=== PATIENT | female | born 1950 | race Caucasian/White ===

== ENCOUNTER 2018-07-14 09:33 | Outpatient (REF) | payer OTHER, SELFPAY ==
[2018-07-14 20:43] LABS: ALT 33 U/L (12-78); AST 25 U/L (15-37); Albumin 3.4 g/dL (3.4-5.0); Alkaline Phosphatase 103 U/L (46-116); Anion Gap 9.9 mmol/L (3-11); BUN 24 mg/dL (7-18); Bilirubin, Total 0.5 mg/dL (0.2-1.0); CO2 22.1 mmol/L (21.0-32.0); CREATININE 1.06 mg/dL (0.55-1.02); Calcium 8.3 mg/dL (8.5-10.1); Chloride 107 mmol/L (98-107); Cholesterol 153 mg/dL (50-200); Estimated GFR 51.71 (mL/min/1.73m2); Glucose 99 mg/dL (70-100); HDL Cholesterol 46 mg/dL (40-60); LDL CHOLESTEROL 97 mg/dL (<100); Potassium 4.8 mmol/L (3.5-5.1); Sodium 139 mmol/L (136-145); Total Protein 6.5 g/dL (6.4-8.2); Triglyceride 98 mg/dL (30-150)
[2018-07-14 20:52] LABS: Hemoglobin A1C 5.8 % (4.5-6.2)
== END 2018-07-14 09:53 ==
LOC: NCHCN 09:33
PROVIDERS: PCP Nurse Practitioner Family; Visit Provider Family Medicine
DX: I10 Essential (primary) hypertension (principal); E78.5 Hyperlipidemia, unspecified; R73.9 Hyperglycemia, unspecified
CPT/HCPCS: 80053; 80061; 83721; 83036

== ENCOUNTER 2018-08-23 01:13 | Outpatient (CLI) | payer OTHER, SELFPAY ==
--- NOTE | 2018-08-23 10:45 | DI.MAMMO_ITS ---
SYMPTOM/DIAGNOSIS: SCREENING, Z12.39 MAMMOGRAMS: Mammograms were interpreted according to the usual protocol including computer analysis with CAD system, tomosynthesis and C view imaging. The breasts are of moderate density with fairly symmetrical distribution of fibroglandular tissue. No dominant mass or clumped microcalcification is identified in either breast. The current examination is compared with previous examinations including 01/2017 and there has been no gross interval change in appearance in comparison with the previous studies. CONCLUSION: No specific evidence of malignancy at this time. Routine screening examinations are suggested at yearly intervals in this age group according to the ACS/ACR guidelines. Category 1. Breast density, category B. MQSA ASSESSMENT OF FINDINGS: Negative. Category 1. Patient will receive a letter notifying them of these results. BI-RADS category B. There are scattered areas of fibroglandular density.
== END 2018-08-23 01:33 ==
PROVIDERS: Visit Provider Physician Assistant Medical
DX: Z12.31 Encounter for screening mammogram for malignant neoplasm of breast (principal)
CPT/HCPCS: 77063; 77067

== ENCOUNTER 2019-01-14 12:40 | Outpatient (REF) | payer OTHER, SELFPAY ==
[2019-01-14 19:36] LABS: ALT 28 U/L (12-78); AST 17 U/L (15-37); Albumin 3.5 g/dL (3.4-5.0); Alkaline Phosphatase 104 U/L (46-116); Anion Gap 8.7 mmol/L (3-11); BUN 26 mg/dL (7-18); Bilirubin, Total 0.6 mg/dL (0.2-1.0); CO2 27.3 mmol/L (21.0-32.0); CREATININE 1.07 mg/dL (0.55-1.02); Chloride 104 mmol/L (98-107); Cholesterol 154 mg/dL (50-200); Estimated GFR 51.15 (mL/min/1.73m2); Glucose 96 mg/dL (70-100); HDL Cholesterol 44 mg/dL (40-60); LDL CHOLESTEROL 90 mg/dL (<100); Potassium 4.7 mmol/L (3.5-5.1); Sodium 140 mmol/L (136-145); Total Protein 6.9 g/dL (6.4-8.2); Triglyceride 125 mg/dL (30-150)
[2019-01-15 07:58] LABS: Hemoglobin A1C 5.8 % (4.5-6.2)
== END 2019-01-14 13:00 ==
LOC: NCHCN 12:40
PROVIDERS: Visit Provider Nurse Practitioner Family
DX: R73.9 Hyperglycemia, unspecified (principal); I10 Essential (primary) hypertension; E78.5 Hyperlipidemia, unspecified
CPT/HCPCS: 80053; 80061; 83721; 83036

== ENCOUNTER 2019-07-15 09:46 | Outpatient (REF) | payer OTHER, SELFPAY ==
[2019-07-15 19:50] LABS: Glucose 95 mg/dL (70-100)
== END 2019-07-15 10:06 ==
LOC: NCHCN 09:46
PROVIDERS: PCP Nurse Practitioner Family; Visit Provider Nurse Practitioner Family
DX: R73.9 Hyperglycemia, unspecified (principal)
CPT/HCPCS: 82947

== ENCOUNTER 2019-09-07 01:07 | Outpatient (CLI) | payer OTHER, SELFPAY ==
--- NOTE | 2019-09-07 10:45 | DI.MAMMO_ITS ---
EXAM: MG MAMMO SCREENING CLINICAL HISTORY: SCREENING Z12.39 TECHNIQUE: Bilateral full field digital CC and MLO mammographic images were obtained with 3D tomosyn thesis and utilizing computer aided detection (CAD). COMPARISON: Available for comparison. FINDINGS: Masses/Architectural Distortion: None seen. Microcalcifications: No suspicious pleomorphic-type are seen. Skin Thickening/Nipple Retraction: None. IMPRESSION: 1. No significant interval change with no specific features of malignancy noted. 2. Unless there is more urgent need, screening mammography is recommended, as per [employer] guidelines. ACR BI-RAD Category- 1 Negative Breast Density - Category A - Almost entirely fatty A negative radiographic report should not delay biopsy if a dominant or clinically suspicious mass is present. Up to ten percent of cancers are not identified on mammography. A negative report may reinforce clinical impression. Adenosis and dense breasts may obscure an underlying neoplasm. False positive reports average 6 to 10%.
== END 2019-09-07 01:27 ==
PROVIDERS: PCP Nurse Practitioner Family; Visit Provider Nurse Practitioner Family
DX: Z12.31 Encounter for screening mammogram for malignant neoplasm of breast (principal)
CPT/HCPCS: 77063; 77067

== ENCOUNTER 2020-01-02 08:47 | Outpatient (REF) | payer OTHER, SELFPAY ==
[2020-01-02 20:13] LABS: ALT 26 U/L (14-59); AST 14 U/L (15-37); Anion Gap 12.5 mmol/L (3-11); BUN 24 mg/dL (7-18); CO2 22.5 mmol/L (21.0-32.0); CREATININE 0.97 mg/dL (0.55-1.02); Calcium 8.8 mg/dL (8.5-10.1); Calculated LDL 79 mg/dL (<100); Chloride 105 mmol/L (98-107); Cholesterol 142 mg/dL (<200); Estimated GFR 57.11 (mL/min/1.73m2); Glucose 106 mg/dL (74-106); HDL Cholesterol 44 mg/dL (40-60); Potassium 4.5 mmol/L (3.5-5.1); Sodium 140 mmol/L (136-145); Triglyceride 95 mg/dL (<150)
[2020-01-02 20:25] LABS: Creatine Kinase 51 U/L (26-192)
== END 2020-01-02 09:07 ==
LOC: NCHCN 08:47
PROVIDERS: PCP Nurse Practitioner Family; Visit Provider Nurse Practitioner Family
DX: I10 Essential (primary) hypertension (principal); J44.9 Chronic obstructive pulmonary disease, unspecified
CPT/HCPCS: 80048; 80061; 82550; 84450; 84460

== ENCOUNTER 2020-09-18 00:34 | Outpatient (CLI) | payer OTHER, SELFPAY ==
--- NOTE | 2020-09-18 | DI.DEXA_ITS ---
EXAM: XR DEXA BONE DENSITY W/WO KAREEM CLINICAL HISTORY: SCREENING FOR OSTEOPOROSIS IN POSTMENOPAUSAL WOMAN,Z78.0,Z13.820 TECHNIQUE: COMPARISON: No exams were available for comparison FINDINGS: Lateral Spine Image: Unremarkable. No compression deformities identified. Left hip: Total T-Score: 1.0 Total Z-Score: 2.5 T- and Z-scores: Within normal limits. Lumbar Spine: Total T-Score: 0.1 Total Z-Score: 2.2 T- and Z-scores: Within normal limits. IMPRESSION: No evidence of osteoporosis.
== END 2020-09-18 00:54 ==
PROVIDERS: PCP Nurse Practitioner Family; Visit Provider Nurse Practitioner Family
DX: Z78.0 Asymptomatic menopausal state (principal); Z13.820 Encounter for screening for osteoporosis
CPT/HCPCS: 77080

== ENCOUNTER 2020-12-24 16:50 | Outpatient (REF) | payer OTHER, SELFPAY ==
[2020-12-24 16:10] LABS: Anion Gap 10.9 mmol/L (3-11); BUN 24 mg/dL (7-18); CO2 21.1 mmol/L (21.0-32.0); Calculated LDL 76 mg/dL (<100); Chloride 106 mmol/L (98-107); Cholesterol 144 mg/dL (<200); Estimated GFR 54.97 (mL/min/1.73m2); Glucose 108 mg/dL (74-106); HDL Cholesterol 46 mg/dL (40-60); Potassium 4.4 mmol/L (3.5-5.1); Sodium 138 mmol/L (136-145); Triglyceride 111 mg/dL (<150)
[2020-12-24 18:20] LABS: ALT 30 U/L (14-59); AST 18 U/L (15-37); Creatine Kinase 64 U/L (26-192)
== END 2020-12-24 16:51 | disposition home or self-care (01) ==
LOC: NCHCN 16:50
PROVIDERS: PCP Nurse Practitioner Family; Visit Provider Nurse Practitioner Family
DX: I10 Essential (primary) hypertension (principal); E78.5 Hyperlipidemia, unspecified
CPT/HCPCS: 80048; 80061; 82550; 84450; 84460

== ENCOUNTER 2021-01-04 02:42 | Outpatient (CLI) | payer OTHER, SELFPAY ==
--- NOTE | 2021-01-04 | DI.MAMMO_ITS ---
EXAM: MAMMO SCREENING CLINICAL HISTORY: SCREENING, Z12.39 TECHNIQUE: Mammograms were interpreted according to the usual protocol including computer analysis w [employer] CAD system, tomosynthesis and C-view imaging. COMPARISON: 2011 through 2018 FINDINGS: The breasts are composed of mainly fatty density , Breast Density category A. No suspicious masses or suspicious microcalcifications are seen. No skin thickening or abnormal axillary lymph nodes are seen. There has been no significant change from prior exams. IMPRESSION: BI-RADS Category 1, Negative mammogram Yearly screening mammography is recommended. Breast Density - Category A, fatty density. A negative radiographic report should not delay biopsy if a dominant or clinically suspicious mass is present. Up to ten percent of cancers are not identified on mammography. A negative report may reinforce clinical impression. Adenosis and dense breasts may obscure an underlying neoplasm. False positive reports average 6 to 10%. Patient will receive a letter notifying them of these results.
== END 2021-01-04 02:43 ==
LOC: DI 02:42
PROVIDERS: PCP Nurse Practitioner Family; Visit Provider Nurse Practitioner Family
DX: Z12.31 Encounter for screening mammogram for malignant neoplasm of breast (principal)
CPT/HCPCS: 77063; 77067

== ENCOUNTER 2021-06-24 09:11 | Outpatient (REF) | payer OTHER, SELFPAY ==
[2021-06-24 15:14] LABS: Abs Immature Grans 0.02 10^3/uL (0.0-0.06); Absolute Basophil Count 0.06 10^3/uL (0.0-0.2); Absolute Eosinophil Count 0.17 10^3/uL (0.0-0.7); Absolute Lymphocyte Count 1.66 10^3/uL (1.2-3.4); Absolute Monocyte Count 0.59 10^3/uL (0.1-0.8); Basophils % 0.8; Eosinophils % 2.3; HCT 48.4 % (36.0-46.0); Immature Grans % 0.3; Lymphocytes % 22.7; MCH 29.9 pg (27.0-33.0); MCHC 33.1 % (32.0-36.0); MCV 90.3 fL (80-95); MPV 11.5 fL (8.0-11.0); Monocytes % 8.1; Neutrophils % 65.8; Nucleated RBC 0 %; Platelet Count 205 10^3/uL (130-400); RBC 5.36 10^6/uL (3.93-5.22); RDW 13.6 % (11.7-14.6); RDW-SD 45.2 fL
[2021-06-24 15:40] LABS: ALT 28 U/L (14-59); AST 17 U/L (15-37); Albumin 3.7 g/dL (3.4-5.0); Alkaline Phosphatase 94 U/L (46-116); BUN 21 mg/dL (7-18); Bilirubin, Direct 0.1 mg/dL (0.0-0.2); Bilirubin, Total 0.6 mg/dL (0.2-1.0); Estimated GFR 54.81 (mL/min/1.73m2); TSH (W/Ref FT4) 2.55 uIU/mL (0.36-3.74)
== END 2021-06-24 09:12 | disposition home or self-care (01) ==
LOC: NCHCN 09:11
PROVIDERS: PCP Nurse Practitioner Family; Visit Provider Nurse Practitioner Family
DX: L29.9 Pruritus, unspecified (principal)
CPT/HCPCS: 80076; 84520; 82565; 84443; 85025

== ENCOUNTER 2021-12-18 08:32 | Outpatient (REF) | payer OTHER, SELFPAY ==
[2021-12-18 13:15] LABS: ALT 26 U/L (14-59); AST 16 U/L (15-37); Anion Gap 11.5 mmol/L (3-11); BUN 23 mg/dL (7-18); CO2 21.5 mmol/L (21.0-32.0); CREATININE 0.9 mg/dL (0.55-1.02); Calcium 8.8 mg/dL (8.5-10.1); Chloride 108 mmol/L (98-107); Glucose 99 mg/dL (74-106); HDL Cholesterol 54 mg/dL (40-60); LDL CHOLESTEROL 91 mg/dL (<100); Potassium 4.2 mmol/L (3.5-5.1); Sodium 141 mmol/L (136-145)
[2021-12-18 13:25] LABS: Hemoglobin A1C 5.7 % (<5.7)
[2021-12-18 13:35] LABS: Creatine Kinase 56 U/L (26-192)
== END 2021-12-18 08:33 | disposition home or self-care (01) ==
LOC: NCHCN 08:32
PROVIDERS: PCP Nurse Practitioner Family; Visit Provider Nurse Practitioner Family
DX: I10 Essential (primary) hypertension (principal); E78.5 Hyperlipidemia, unspecified; R73.03 Prediabetes
CPT/HCPCS: 80048; 82550; 83721; 83036; 83718; 84450; 84460

== ENCOUNTER → 2022-01-30 12:54 | Outpatient (BNVA) | payer OTHER, SELFPAY | PROVIDERS: PCP Nurse Practitioner Family; Referring Provider Nurse Practitioner Family; Visit Provider Surgery | DX: Z12.11 Encounter for screening for malignant neoplasm of colon (principal); Z86.010 Personal history of colon polyps | CPT/HCPCS: 99242 ==

== ENCOUNTER 2022-02-07 01:59 | Outpatient (CLI) | payer MEDICARE, SELFPAY ==
[2022-02-07 14:42] LABS: Source Nasal/Nares
[2022-02-07 19:20] LABS: COVID-19 PCR Negative (Negative)
== END 2022-02-07 02:00 | disposition home or self-care (01) ==
LOC: LBO 02:00
PROVIDERS: Surgery; PCP Nurse Practitioner Family; Visit Provider Surgery
DX: Z20.822 Contact with and (suspected) exposure to COVID-19 (principal)
CPT/HCPCS: 87635; U0005

== ENCOUNTER 2022-02-10 08:20 | Day surgery (SDC) | payer MEDICARE, SELFPAY ==
--- NOTE | 2022-02-10 06:42 | W.COLOREPORT ---
Colonoscopy Report Date of procedure: 02/10/22 Pre-op diagnosis general: Colon Cancer Screening/ Hx of colon polyp Post-op diagnosis procedure note: other (polyps ) Procedure: Colonoscopy with polypectomy Surgeon: Fariba Marshall Anesthesia Type: General:No Airway Estimated blood loss (mL): 3 Pathology: other (cecal polyp, ascending colon polyps X4, transverse colon polyp X7, descending colon polyp x2) Complications: None Disposition: same day Indications: Pt seen at the request of PCP regarding colon cancer screening. Pt has had a colon cancer screening before.? Denies problems with constipation, diarrhea.? No pain or difficulty with bowel movements.? Denies rectal bleeding.? There is no family history of any colon cancer.? She has lost weight- but she is actively trying to lose wt.? Their appetite is good.? No heart, lung, or kidney problems. + GERD.? if she takes PPI than controls well. ? No prior colo-rectal surgery.? No prior TYRONE.? No problems with anesthesia in the past. Had Ce in the past- and did have an adenoma.? Prep: Miralax/Dulcolax Procedure Start Time: 10:18 Procedure End Time: 10:57 Retraction Time: 29 minutes Findings: 14 polyps mild descending and sigmoid diverticulosis Procedure Description: After informed consent was obtained the patient was taken to the procedure room and placed in a left decubitous position. Monitors were applied and a time out was done. The patients name, date of , procedure, allergies to medications and metal in their body was reviewed. The patient was then sedated. Once sedated and comfortable a rectal exam was done. External exam was normal. Internal exam revealed a normal sphincter tone and no palpable masses. The scope was then introduced and retro-flexed. No internal hemorrhoids, polyps or masses were identified on retro-flexion. The scope was then advanced to the cecum without difficulty. The ileocecal vlave and appendiceal orifice were identified. The prep was good. The scope was then slowly retracted over 29 minutes back into the rectum. Polyps were removed with cold forceps in the ascending colon and descending colon and with a hot snare in the ascending colon x3, transverse colon x7 and descending colon x1. There was no diverticulosis noted. The scope was removed and the patient was woken up and taken back to Same day surgery in stable condition. The patient tolerated the procedure well and there were no immediate complications. Follow up: The patient should follow up in 3-5 years unless they develop changes in bowel habits or other new gastrointestinal complaints.
--- NOTE | 2022-02-10 06:43 | W.PM.DSUDISC ---
Discharge Plan Disposition Patient Disposition: HOME Condition: Good Discharge Details Reason For Visit: Colonoscopy Attending Provider: Fariba Marshall Primary Care Provider: Triny St Home Meds and New Rx's Prescriptions: Continued metoprolol tartrate 50 mg tablet 25 mg PO HS 0RF losartan 50 mg tablet 100 mg PO QAM 0RF cholecalciferol (vitamin D3) 75 mcg (3,000 unit) tablet 150 mcg PO DAILY 0RF calcium carbonate [Calcium 600] 600 mg calcium (1,500 mg) tablet 600 mg PO DAILY 0RF famotidine 20 mg tablet 20 mg PO QHS 0RF aspirin [Aspir-81] 81 MG tablet,delayed release (DR/EC) 81 mg PO QAM 0RF simvastatin 40 MG tablet 40 mg PO HS 0RF omeprazole 20 MG capsule,delayed release(DR/EC) 20 mg PO QPM 0RF montelukast 10 MG tablet 10 mg PO HS 0RF fluticasone propion-salmeterol [Advair Diskus] 1 PUFF blister with device 1 ea Inhalation QAM 0RF albuterol sulfate [Proventil HFA] 1 PUFF HFA aerosol inhaler 2 puff Inhalation DIRECTED 0RF multivitamin 1 EACH capsule 1 ea PO QAM 0RF fluticasone propionate 16 GM spray,suspension 2 spry NS QAM 0RF loratadine 10 MG tablet 10 mg PO QAM 0RF diphenhydramine HCl [Benadryl] 25 MG capsule 25 mg PO PRN PRN0RF Discontinued polyethylene glycol 3350 17 gram/dose powder 17 g PO ONCE Qty: 238 0RF Rx Instructions: To be taken as directed by prescriber's office for colonoscopy prep. bisacodyl [Dulcolax (bisacodyl)] 5 mg tablet,delayed release (DR/EC) 5 mg PO ONCE Qty: 4 0RF Rx Instructions: Take according to provider's instructions for colonoscopy prep. Discharge Instructions Instructions: Colorectal Polyps (DC), Diverticulosis (DC) Additional Instructions: Findings: 12 polyps Diverticulosis Follow up: 3 years Please call if you develop: fevers >101.5 Nausea or Vomiting Abdominal pain that is not transient Rectal bleeding that is more then a tbsp A hard abdomen and inability to pass gas DAY SURGERY UNIT POST ENDOSCOPY INSTRUCTIONS Instructions for everyone who is given Anesthesia: For your safety, please do the following for the next 24 Hours: a. Do not drive or operate dangerous equipment b. Do not drink alcohol beverages or use any recreational drugs for the first 24 hours or while taking pain medications. The medications in your body may have a reaction that can be dangerous. c. Do not make any important decisions or sign any important papers 1. Generally there are no restrictions on your activity after a day or so has gone by, but you may feel a bit fatigued for a few days. 2. After you arrive home you may have a light meal and return to a normal diet as you can tolerate it without feeling sick to your stomach. 3. After surgery, you may feel pain or discomfort. This should be only transient, but if it persists please contact your doctor. 4. If there are any questions regarding the findings of your procedure, please feel free to contact your doctor. 6. If you are unable to contact your doctor with a problem, contact the hospital at [phone]. 7. Continue all your regular medications unless directed otherwise. I understand the above instructions and have no questions. Signature of Patient or Responsible Adult Escort Date/Time Name of Responsible Adult Escort Signature of Nurse Date/Time Activity:: Activity as Tolerated Diet:: high fiber diet Discharge Orders Discharge Orders: Discharge Order (Routine); Ordered 02/10/22 Ordered By: Fariba Marshall
[2022-02-10 08:30] VITALS: BP 162/67; PULSE 90; RESP 19; TEMP 36.2; O2SAT 95
[2022-02-10] MEDS: Lactated Ringers 1,000 ML 80 ML IV (09:00)
--- NOTE | 2022-02-10 09:42 | W.ANESPRE ---
General Info Date of Service Date Performed: 02/10/22 Height: 5 ft 3 in Weight: 91.6 kg Body Mass Index (BMI): 35.7 Surgical Procedure: Operation Date: 02/10/22 10:05 Proposed Procedure Side Surgeon p Colonoscopy Fariba Marshall MD Meds Allergies and Home Medications Allergies Allergy/AdvReac Type Severity Reaction Status Date / Time clarithromycin [From Biaxin] Allergy Intermediate Skin Rash Unverified 02/10/22 08:40 mushroom Allergy Intermediate Itching Unverified 02/10/22 08:40 Sulfa (Sulfonamide AdvReac Intermediate Agitation Unverified 02/10/22 08:40 Antibiotics) atorvastatin calcium AdvReac Mild Myalgias Unverified 02/10/22 08:40 [From Lipitor] Home Medication Medication Instructions Recorded albuterol sulfate 90 mcg/actuation 2 puff INHALATION DIRECTED 03/28/13 aerosol inhaler (Proventil HFA) aspirin 81 mg tablet,delayed 81 mg PO QAM 03/28/13 release (Aspir-) fluticasone 100 mcg-salmeterol 50 1 ea INHALATION QAM 03/28/13 mcg/dose blistr powdr for inhalation (Advair Diskus) fluticasone propionate 50 2 spry NS QAM 03/28/13 mcg/actuation nasal spray,suspension loratadine 10 mg tablet 10 mg PO QAM 03/28/13 montelukast 10 mg tablet 10 mg PO HS 03/28/13 multivitamin 1 ea PO QAM 03/28/13 omeprazole 20 mg capsule,delayed 20 mg PO QPM 03/28/13 release simvastatin 40 mg tablet 40 mg PO HS 03/28/13 diphenhydramine HCl 25 mg capsule 25 mg PO PRN PRN 11/09/13 (Benadryl) calcium carbonate 600 mg calcium 600 mg PO DAILY 08/29/20 (1,500 mg) tablet (Calcium) cholecalciferol (vitamin D3) 75 150 mcg PO DAILY tab 08/29/20 mcg (3,000 unit) tablet losartan 50 mg tablet 100 mg PO QAM tab 08/29/20 metoprolol tartrate 50 mg tablet 25 mg PO HS tab 08/29/20 famotidine 20 mg tablet 20 mg PO QHS 07/12/21 bisacodyl 5 mg tablet,delayed 5 mg PO ONCE #4 tab 01/30/22 release (Dulcolax (bisacodyl)) polyethylene glycol 3350 17 17 g PO ONCE #238 g 01/30/22 gram/dose oral powder Current Visit Medications: Current Medications Generic Name Dose Route Start Last Admin Trade Name Freq PRN Reason Stop Dose Admin Hyoscyamine Sulfate 0.125 mg 02/10/22 06:43 Hyoscyamine 0.125 Mg Sl/Oral/Chew SL DIRECTED PRN Ringer's Solution 1,000 mls @ 80 mls/hr 02/10/22 06:00 02/10/22 09:00 IV 03/09/22 23:59 80 mls/hr INFUSION ANDREA Administration IV Miscellaneous Supplies 1 each 02/10/22 06:00 Iv Access IV 03/09/22 23:59 DIRECTED ANDREA Ondansetron HCl 4 mg 02/10/22 06:43 Ondansetron 4 Mg/2 Ml Vial IVP Q4H PRN PRN Nausea / Vomiting Sodium Chloride 0 ml 02/10/22 06:00 Normal Saline Flush 10 Ml Syr IV 03/09/22 23:59 PRN PRN Sodium Chloride 0 ml 02/10/22 06:00 Normal Saline 10 Ml Vial IJ 03/09/22 23:59 DIRECTED PRN Sterile Water 0 ml 02/10/22 06:00 Water,Injection,Sterile 10 Ml Vial IJ 03/09/22 23:59 DIRECTED PRN PFSH Active Problems Active Problems: Problem Status Onset Code Screening for colon cancer Z12.11 Medical History Medical History Adenomatous colon polyp Asthma Chronic cough Chronic obstructive lung disease Diverticulitis Essential hypertension Family history of colon cancer in mother Family history of ischemic heart disease Gastroesophageal reflux disease History of tobacco use Hyperlipidemia Hyperplastic colon polyp (~2012) Morbid obesity Obesity Papule Paresthesia Pre-diabetes Pruritus Tubular adenoma Surgical History Surgical History Colonoscopy - MAC Tonsillectomy and adenoidectomy Tobacco Smoking/Tobacco Use Status: Former Tobacco Use Alcohol Alcohol Intake: current Alcohol intake frequency: holidays/special occasions only Substance Use Substance use: Never Substance use type: does not use Vital Signs and Lab Results Vital Signs Most Recent Vital Signs in EMR: Most Recent Vital Signs Temp Pulse Resp BP Pulse Ox 36.2 C L 90 19 162/67 H 95 02/10/22 08:30 02/10/22 08:30 02/10/22 08:30 02/10/22 08:30 02/10/22 08:30 Lab Results Blood Type / Crossmatch: No Data to Display Complete Blood Count: No Data to Display Complete Metabolic Panel: No Data to Display Liver Function Panel: No Data to Display Coagulation Panel: No Data to Display Cardiac Panel: No Data to Display Arterial Blood Gas: No Data to Display Venous Blood Gas: No Data to Display Pancreas Panel: No Data to Display Thyroid Panel: No Data to Display Infectious Disease: Coronavirus (COVID-19)(PCR) Negative (Negative) 02/07/22 08:50 02/07/22 Coronavirus 2019 Source Nasal/Nares 02/07/22 08:50 02/07/22 Blood Cultures: No Data to Display Toxicology Panel: No Data to Display Anesthesia Assessment and Plan Anesthesia History Personal History: No History of Anesthesia Complications Family History: No Family History of Anesthesia Complications Exercise Tolerance Exercise Tolerance: Metabolic Equivalents<4 Cardiac & Pulmonary Exam Cardiac Exam: Normal S1/S2 Heart Sounds Pulmonary Exam: Clear Bilateral Breath Sounds Implantable Cardiac Device Does patient have a Pacemaker or an ICD?: No Airway Exam Known Difficult Airway: No Mallampati Class: 3 Mouth Opening: Normal (> 3cm) Thyromental Distance: Greater than 3 cm Neck Range of Motion: Full ROM Neck Circumference: Normal Teeth Condition: Removable Dentures/Plates Upper and Removable Dentures/Plates Lower ASA Classification ASA Score: ASA 2 Emergency Case?: No NPO Status NPO Status: NPO Clears >2 hours, Solids >8 hours Anesthesia Plan Resuscitation Status: Full Code Anesthesia Technique: General Anesthesia Airway Planned: Natural Airway Monitors Used: Standard Monitors Preoperative Comments:: 71 yo female for colo. Sig PMHx: COPD/chronic cough/former smoker (albuterol, advair), HTN (metoprolol, losartan), GERD (famotidine/omeprazole),
[2022-02-10 09:46] VITALS: BMI 35.7
--- NOTE | 2022-02-10 10:29 | BOWEL_PTH ---
PATIENT: Carmela Dunn LOC: [facility] U#:[id number] AGE/SX: 71/F ROOM: RE02/10/[address]: Fariba Marshall MD : [id number] BED: DIS: 02/10/2022 SPEC #: [id number] RECD: 02/10/22 12:54 STATUS: LESLY REQ #: [id number] CHAITANYA: 02/10/22 10:[address]: Fariba Marshall DEPT: Surgical Specimen RECD BY: Andra Sanderson ENTERED: 02/10/22 12:56 SP TYPE: Bowel OTHR DR: Triny St Tissues: 1 - BIOPSY BOWEL 2 - BIOPSY BOWEL 3 - BIOPSY BOWEL 4 - BIOPSY BOWEL Procedures: GROSS AND MICRO LEVEL 4 Comments: [id number]
--- NOTE | 2022-02-10 11:07 | W.ANESPOSTOP ---
Postoperative Evaluation Date, Time and Location Date Performed: 02/10/22 Time Performed: 11:08 Patient Location: Day Surgery Unit Vital Signs Most Recent Imported Vital Signs: Most Recent Vital Signs Temp Pulse Resp BP Pulse Ox 36.2 C L 90 19 162/67 H 95 02/10/22 08:30 02/10/22 08:30 02/10/22 08:30 02/10/22 08:30 02/10/22 08:30 Most Recent Manually Entered Vital Signs: Adult Blood Pressure: 105/64 Heart Rate: 78 Respirations: 16 Oxygen Saturation (%): 97 Temperature (C): 36 C Pain Score (0-10 Scale): 0 Assessment Mental Status: Awake (Alert & Oriented to Patient Baseline) Airway and Respiratory Function: Patent airway with normal (patient baseline) respiratory exam Cardiovascular Function: Hemodynamically Stable Hydration Status: Adequately Hydrated Nausea & Vomiting: No Nausea or Vomiting Pain: Pt. Denies Any Pain Peripheral Nerve Block: Patient did not receive a nerve block
[2022-02-10 11:09] VITALS: BP 105/64; PULSE 78; RESP 16; TEMPC 36; O2SAT 97
[2022-02-10 11:34] VITALS: BP 127/65; PULSE 74; RESP 16; TEMP 35.9; O2SAT 97
== END 2022-02-10 12:05 | disposition home or self-care (01) ==
LOC: SUR 08:20
PROVIDERS: PCP Nurse Practitioner Family; Visit Provider Surgery
PROC: 0DJD8ZZ Inspection of Lower Intestinal Tract, Via Natural or Artificial Opening Endoscopic (ICD-10-PCS; CPT 45378; principal; 2022-02-10 10:00)
DX: Z12.11 Encounter for screening for malignant neoplasm of colon (principal); Z86.010 Personal history of colon polyps; K63.5 Polyp of colon
CPT/HCPCS: 45380; 45385; 88305; J2704

== ENCOUNTER 2022-12-08 16:02 | Outpatient (REF) | payer MEDICARE, SELFPAY ==
[2022-12-08 17:21] LABS: ALT 30 U/L (14-59); AST 21 U/L (15-37); Albumin 3.5 g/dL (3.4-5.0); Alkaline Phosphatase 95 U/L (46-116); Anion Gap 11.9 mmol/L (3-11); BUN 21 mg/dL (7-18); Bilirubin, Total 0.5 mg/dL (0.2-1.0); CO2 22.1 mmol/L (21.0-32.0); CREATININE 1.1 mg/dL (0.55-1.02); Calcium 9.3 mg/dL (8.5-10.1); Chloride 107 mmol/L (98-107); Creatine Kinase 55 U/L (26-192); Estimated GFR 53.72 (mL/min/1.73m2); Glucose 113 mg/dL (74-106); Sodium 141 mmol/L (136-145); Total Protein 7.4 g/dL (6.4-8.2)
[2022-12-08 17:23] LABS: Hemoglobin A1C 5.7 % (<5.7)
[2022-12-08 17:43] LABS: HDL Cholesterol 53 mg/dL (40-60); LDL CHOLESTEROL 90 mg/dL (<100)
== END 2022-12-08 16:03 | disposition home or self-care (01) ==
LOC: NCHCN 16:02
PROVIDERS: PCP Nurse Practitioner Family; Visit Provider Nurse Practitioner Family
DX: E78.5 Hyperlipidemia, unspecified (principal); R73.03 Prediabetes; I10 Essential (primary) hypertension
CPT/HCPCS: 80053; 82550; 83721; 83036; 83718

== ENCOUNTER 2022-12-11 02:09 | Outpatient (CLI) | payer MEDICARE, SELFPAY ==
--- NOTE | 2022-12-11 | DI.MAMMO_ITS ---
Exam(s) MAMMO SCREENING EXAM: MAMMO SCREENING CLINICAL HISTORY: SCREENING MAMMO Z12.39 TECHNIQUE: Mammograms were interpreted according to the usual protocol including computer analysis w [employer] CAD system, tomosynthesis and C-view imaging. COMPARISON: 2013 through 2020 FINDINGS: The breasts are composed of mainly fatty density , Breast Density category A. No suspicious masses or suspicious microcalcifications are seen. No skin thickening or abnormal axillary lymph nodes are seen. There has been no significant change from prior exams. IMPRESSION: BI-RADS Category 1, Negative mammogram Yearly screening mammography is recommended. Breast Density - Category A, fatty density. A negative radiographic report should not delay biopsy if a dominant or clinically suspicious mass is present. Up to ten percent of cancers are not identified on mammography. A negative report may reinforce clinical impression. Adenosis and dense breasts may obscure an underlying neoplasm. False positive reports average 6 to 10%. Patient will receive a letter notifying them of these results.
== END 2022-12-11 02:29 ==
PROVIDERS: PCP Nurse Practitioner Family; Visit Provider Nurse Practitioner Family
DX: Z12.31 Encounter for screening mammogram for malignant neoplasm of breast (principal)
CPT/HCPCS: 77063; 77067

== ENCOUNTER 2023-01-27 01:39 | Outpatient (CLI) | payer MEDICARE, SELFPAY ==
--- NOTE | 2023-01-27 10:30 | DI.US_ITS ---
APPROVED REPORT EXAM: Comprehensive 2D, Doppler, and color-flow Echocardiogram Patient Location: Out-Patient Counseling Psychologist: Kelley Barrett RDCS (AE) Indications: Peripheral edema, SOB, HTN Other Information Study Quality: Adequate Conclusion The left ventricular wall thickness and chamber size. Estimated ejection fraction is 55%. Wall eugene on is normal Normal right ventricular size and systolic function Both atria are normal in size The aortic valve is mildly calcified and trileaflet without stenosis or regurgitation Normal mitral valve with mild regurgitation Normal tricuspid valve with mild regurgitation. Estimated right ventricular systolic pressure is 32 mmHg Wall motion Left Ventricle The left ventricle is normal size. The left ventricular systolic function is normal. The left ventric ular ejection fraction is within the normal range. There is normal left ventricular wall thickness. T here is normal LV segmental wall motion. There is no ventricular septal defect visualized. LVEF is 55 %. Right Ventricle The right ventricle is normal size. The right ventricular systolic function is normal. The RVSP is 31 .7 mmHg. Atria The left atrium size is normal. The right atrium size is normal. The interatrial septum is intact wit h no evidence for an atrial septal defect. Aortic Valve Aortic valve is mildly calcified. Aortic valve is trileaflet. There is no aortic valvular stenosis. N o aortic regurgitation is present. Mitral Valve The mitral valve is normal in structure. No evidence of mitral valve stenosis. Mild mitral regurgita tion. Tricuspid Valve The tricuspid valve is normal in structure. There is no tricuspid valve stenosis. Mild tricuspid regu rgitation. Pulmonic Valve The pulmonary valve is normal in structure. There is no pulmonic valvular stenosis. Trace to mild pul steven regurgitation. Great Vessels The aortic root is normal in size. The ascending aorta is normal in size. Aortic arch is not well vis ualized. IVC is normal in size and collapses >50% with inspiration. Pericardium There is no pericardial effusion. 2D Dimensions IVSD d PLAX 1.00 cm F: 0.6-1.0 LV Vol A2C d MOD 102.1 mL LVPW d PLAX 0.94 cm F: 0.6 - 1.0 LV Vol A4C d MOD 107.2 mL LVID d PLAX 4.26 cm F: 3.8 - 5.2 LA vol/ BSA A2C s A-L 20.0 mL/m2 LVDs 3.00 cm F: 2.2 - 3.5 LA vol/ BSA A4C s A-L 24.2 mL/m2 Ao Root d 2.46 cm F: 2.7 - 3.3 LA Vol/ BSA Biplane s A-L 23.5 mL/m2 RA Area A4C 11.85 cm2 LA Area A4C s MOD 16.24 cm2 RA Vol/ BSA A4C s A-L 15.1 mL/m2 LA Area A2C s MOD 13.85 cm2 Ao Asc Diam d 3.10 cm F: 2.3 - 3.1 LV EF A4C MOD 55.5 % LV EF Teichholz 55.7 % LV EF A2C MOD 56.0 % LVEF (Santana's) 55.63 % F: 54 - 74 LV EF Biplane MOD 55.6 % LV Volume 80.58 mL F: 46 - 106 SV 58.51 mL LV Volume Index 42.86 mL/m2 F: 29 - 61 SV Index 31.15 mL/m2 LV Vol Biplane MOD 105.2 mL FS 28.75 % M-Mode TAPSE 2.48 cm (M/F) >1.7 LV Diastology MV E' medial 0.068 (>0.07 m/s) E/A Ratio 1.0 LV E/e MED 12.95 (<14) MV E Vmax 0.89 (0.4-1.3 m/s) MV E' lateral 0.093 (>0.1 m/s) MV A Vmax 0.85 (0.4-1.3 m/s) LV E/e LAT 9.55 (<14) MV E/A Ratio 1.04 MV E/E' medial 12.98 MV E/E' lateral 9.57 Aortic Valve LVOT Area 2.62 cm2 AoV Area Vmax 1.82 cm2 LVOT Vmax 0.89 m/s AoV Area/ BSA (Vmax) 0.97 cm2/m2 LVOT Mean Maximo. 0.57 m/s ELISEO Mean Maximo. 1.66 cm2 LVOT Peak Grad 3.2 mmHg ELISEO Mean Maximo. Index 0.89 cm2/m2 LVOT Mean Grad 1.5 mmHg LVOT VTI 0.199 m LVOT Diam s 1.80 cm AoV Vmax 1.28 m/s Velocity Ratio 0.70 AoV Mean Maximo. 0.90 m/s AoV Peak Grad 6.6 mmHg LVOT SV 52.19 mL AoV Mean Grad 3.6 mmHg AoV VTI 0.283 m AoV Area VTI 1.84 cm2 AoV Area/ BSA (VTI) 0.98 cm/m2 Mitral Valve MV DT 195 (160-240 msec) MV PHT 56 msec MV Area PHT 3.90 cm2 MV VTI 0.240 m MV Area VTI 2.17 (4.0-6.0 cm2) Pulmonary Valve PV Vmax 1.03 (0.5-1.5 m/s) RVOT Peak Gr. 1.45 mmHg PV Peak Grad 4.2 mmHg RVOT Mean Gr. 0.75 mmHg PV Mean Grad 2.2 mmHg RVOT VTI 0.139 m PV VTI 0.232 m RVOT Vmax 0.60 m/s Tricuspid Valve TR Peak Grad 28.6 mmHg TR Vmax 2.68 m/s RA Pressure 3.00 mmHg RVSP (TR) 31.7 mmHg
== END 2023-01-27 01:59 ==
LOC: DI 01:40
PROVIDERS: PCP Nurse Practitioner Family; Visit Provider Nurse Practitioner Family
DX: R60.9 Edema, unspecified (principal)
CPT/HCPCS: 93306

== ENCOUNTER 2023-06-15 13:47 | Outpatient (REF) | payer MEDICARE, SELFPAY ==
[2023-06-15 15:16] LABS: HCT 46.2 % (36.0-46.0); HGB 15.6 g/dL (11.2-15.7); MCH 29.9 pg (27.0-33.0); MCHC 33.8 % (32.0-36.0); MCV 89 fL (80-95); MPV 10.8 fL (8.0-11.0); Platelet Count 223 10^3/uL (130-400); RBC 5.22 10^6/uL (3.93-5.22); RDW 13.4 % (11.7-14.6); RDW-SD 43.4 fL; WBC 7.53 10^3/uL (4.4-10.8)
[2023-06-15 15:38] LABS: ALT 24 U/L (14-59); AST 23 U/L (15-37); Albumin 3.5 g/dL (3.4-5.0); Alkaline Phosphatase 87 U/L (46-116); Anion Gap 12.3 mmol/L (3-11); BUN 23 mg/dL (7-18); Bilirubin, Total 0.5 mg/dL (0.2-1.0); CO2 20.7 mmol/L (21.0-32.0); CREATININE 1.1 mg/dL (0.55-1.02); Calcium 9.5 mg/dL (8.5-10.1); Chloride 106 mmol/L (98-107); Estimated GFR 53.39 (mL/min/1.73m2); Glucose 110 mg/dL (74-106); Potassium 4.2 mmol/L (3.5-5.1); Sodium 139 mmol/L (136-145); TSH 1.62 uIU/mL (0.36-3.74); Total Protein 7.4 g/dL (6.4-8.2)
== END 2023-06-15 13:48 | disposition home or self-care (01) ==
LOC: NCHCN 13:47
PROVIDERS: PCP Nurse Practitioner Family; Visit Provider Nurse Practitioner Family
DX: I10 Essential (primary) hypertension (principal); R73.03 Prediabetes; K21.9 Gastro-esophageal reflux disease without esophagitis; R60.0 Localized edema; J44.9 Chronic obstructive pulmonary disease, unspecified
CPT/HCPCS: 80053; 85027; 84443

== ENCOUNTER → 2023-08-03 01:35 | Outpatient (CLI) | payer MEDICARE, SELFPAY ==
--- NOTE | 2023-08-03 13:42 | DI.RAD_ITS ---
Exam(s) XR CHEST 2V PA LATERAL EXAM: XR CHEST 2V PA LATERAL CLINICAL HISTORY: COUGH, R05.8, COPD, J44.9. TECHNIQUE: 2D digital imaging was performed. COMPARISON: CR CHEST 2 VIEWS PA,LAT from 11/09/2013 FINDINGS: 2 views: Heart size is normal. The mediastinum is not widened. Left lung is clear but there is significant infiltrate in the right parahilar region now evident. Th is measures approximately 4 x 2 cm. No pleural effusions. IMPRESSION: Significant right parahilar infiltrate. Follow-up to resolution recommended to rule out neoplasm. DATA REPOSITORY: RADIATION DOSE DELIVERED:
== END ==
PROVIDERS: PCP Nurse Practitioner Family; Visit Provider Nurse Practitioner Family
DX: R05.8 Other specified cough (principal); J44.9 Chronic obstructive pulmonary disease, unspecified; R91.8 Other nonspecific abnormal finding of lung field
CPT/HCPCS: 71046

== ENCOUNTER → 2023-08-07 02:26 | Outpatient (CLI) | payer MEDICARE, SELFPAY ==
--- NOTE | 2023-08-07 | DI.CT_ITS ---
Exam(s) CT CHEST W EXAM: CT CHEST W CLINICAL HISTORY: PULMONARY INFILTRATE, R91.8, COUGH, R05.8 TECHNIQUE: Imaging Protocol: Axial computed tomography images with coronal and sagittal reformatted images were created and reviewed CONTRAST MATERIAL: Intravenous: Omnipaque 350Contrast volume:100 mL. COMPARISON: CR XR CHEST 2V PA LATERAL from 08/03/2023 FINDINGS: Tracheobronchial tree: Patent where visualized. Pulmonary parenchyma: Emphysematous changes are present in the lungs. There is a spiculated mass in the right upper lobe measuring 2.9 x 3.2 cm. There is obstruction of a bronchus.. There are noncalc ified pulmonary nodules present in the lungs. The largest is in the posterior aspect of the left low er lobe measures 8 mm. Pleural thickening and nodularity is seen along the lateral aspect of the lef t upper lobe. Mediastinum and Kassie: There are enlarged mediastinal and right hilar lymph nodes. The largest nodule is seen anterior to the naz and measures 1.5 x 1.3 cm. The largest lymph node in the right hilum measures 1.8 x 1.2 cm. The esophagus is unremarkable. Thyroid gland: Unremarkable. Pleura: No effusion or pneumothorax. Heart: The heart is not dilated. Coronary artery calcification and/or stents are present. No pericar dial effusion. Aorta: Thoracic aorta non-dilated. Atherosclerosis. Pulmonary arteries: Due to the timing of the bolus, evaluation for pulmonary emboli is suboptimal. N o large central pulmonary embolus is seen. Upper abdomen: There is decreased attenuation of the liver. There is a 1.9 cm cyst in the left lobe of the liver. There is fatty infiltration of the pancreas. Lymph nodes: Within normal limits. Bones: Within normal limits for the patient's age. Soft tissues: Unremarkable. IMPRESSION: 1. 2.9 x 3.2 cm right upper lobe spiculated mass suspicious for neoplasm. 2. Multiple noncalcified pulmonary nodules which may represent an infectious or inflammatory process but metastatic disease should also be considered. 3. Enlarged mediastinal and right hilar adenopathy. RADIATION DOSE DELIVERED: 685.98mGy.cm Total DLP DATA REPOSITORY: All CT scans at this facility are submitted to the National Radiology Data Registry (NRDR) Dose Index Registry (DIR) with the [employer] (ACR). RADIATION OPTIMIZATION: All CT scans at this facility use at least one of these dose optimization te chniques: automated exposure control; mA and/or kV adjustment per patient size (includes targeted exa ms where dose is matched to clinical indication); or iterative reconstruction.
[2023-08-07 11:51] LABS: CREATININE 1.1 mg/dL (0.55-1.02); Estimated GFR 53.39 (mL/min/1.73m2)
[2023-08-07] MEDS: Omnipaque 350 MG/ML 500 ML BTL-Imaging package 100 ML IJ (12:39)
[2023-08-07] MEDS: Normal Saline Flush 10 ML SYR IVP (12:39)
== END ==
PROVIDERS: PCP Nurse Practitioner Family; Visit Provider Nurse Practitioner Family
DX: R91.8 Other nonspecific abnormal finding of lung field (principal); R59.0 Localized enlarged lymph nodes
CPT/HCPCS: 71260; 82565

== ENCOUNTER 2023-09-01 03:05 | Outpatient (CLI) | payer MEDICARE, SELFPAY ==
[2023-09-01] MEDS: Inhaler, Assist Device 1 EACH MC (15:51)
[2023-09-01] MEDS: Levalbuterol HFA 15 GM INH 4 PUFF IH (15:51)
--- NOTE | 2023-09-04 12:42 | W.PFT ---
Date of service: 09/01/23 Time of Service: 14:53 Pulmonary Function Test Result Indications: RUL mass Interpretation Spirometry: There is mild airflow limitation. No significant bronchodilator response. Lung Volumes: Declined by patient Diffusion Capacity: Severely reduced diffusion Airway Pressure: Declined by patient Impression Mild airflow obstruction with severe diffusion deficit. 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 Clinical Correlation therefore is recommended.
== END 2023-09-01 03:06 | disposition home or self-care (01) ==
LOC: RT 03:05
PROVIDERS: PCP Nurse Practitioner Family; Visit Provider Thoracic Surgery (Cardiothoracic Vascular Surgery)
DX: R91.8 Other nonspecific abnormal finding of lung field (principal); R59.0 Localized enlarged lymph nodes
CPT/HCPCS: 94060; 94726; 94729

== ENCOUNTER → 2023-09-16 00:53 | Outpatient (CLI) | payer MEDICARE, SELFPAY ==
--- NOTE | 2023-09-16 | DI.CT_ITS ---
Exam(s) CT HEAD WO/W EXAM: CT HEAD WO/W CLINICAL HISTORY: RUL LUNG CA,C34.11,MEDIASTINAL ADNENOPATHY,EVAL FOR METS. TECHNIQUE: Imaging Protocol: Axial computed tomography images with coronal and sagittal reformatted images were created and reviewed. CONTRAST MATERIAL: Intravenous: Omnipaque 350 contrast volume:100 mL COMPARISON: No exams were available for comparison FINDINGS: Ventricles and Extra axial spaces: Normal in size and morphology for the patient's age. Hemorrhage: None. Cerebral parenchyma: There are areas of decreased attenuation in the white matter consistent with sma ll vessel ischemic disease. Enhancement: No suspicious enhancement. Venetie Ira of Pham: Unremarkable. Midline shift: None. Brainstem/Cerebellum: Normal. Calvarium: Normal. Visualized Paranasal sinuses/Mastoids: Clear. IMPRESSION: 1. Age-related cerebral atrophy and small vessel ischemic disease. 2. No evidence of an intracranial mass or enhancing lesion. RADIATION DOSE DELIVERED: Total DLP Total DLP DATA REPOSITORY: All CT scans at this facility are submitted to the National Radiology Data Registry (NRDR) Dose Index Registry (DIR) with the [employer] (ACR). RADIATION OPTIMIZATION: All CT scans at this facility use at least one of these dose optimization te chniques: automated exposure control; mA and/or kV adjustment per patient size (includes targeted exa ms where dose is matched to clinical indication); or iterative reconstruction.
[2023-09-16 12:46] LABS: Abs Immature Grans 0.03 10^3/uL (0.0-0.06); Absolute Basophil Count 0.06 10^3/uL (0.0-0.2); Absolute Eosinophil Count 0.13 10^3/uL (0.0-0.7); Absolute Lymphocyte Count 2.04 10^3/uL (1.2-3.4); Absolute Monocyte Count 0.64 10^3/uL (0.1-0.8); Basophils % 0.7; Eosinophils % 1.5; HCT 46.3 % (36.0-46.0); HGB 15.5 g/dL (11.2-15.7); Immature Grans % 0.3; Lymphocytes % 23.7; MCH 30.4 pg (27.0-33.0); MCHC 33.5 % (32.0-36.0); MCV 91 fL (80-95); MPV 9.5 fL (8.0-11.0); Monocytes % 7.4; Neutrophils % 66.4; Platelet Count 237 10^3/uL (130-400); RDW 13.3 % (11.7-14.6)
[2023-09-16 13:06] LABS: ALT 29 U/L (14-59); AST 24 U/L (15-37); Albumin 3.5 g/dL (3.4-5.0); Alkaline Phosphatase 92 U/L (46-116); Anion Gap 9.3 mmol/L (3-11); BUN 20 mg/dL (7-18); Bilirubin, Total 0.4 mg/dL (0.2-1.0); CO2 24.7 mmol/L (21.0-32.0); Calcium 9.8 mg/dL (8.5-10.1); Chloride 106 mmol/L (98-107); Estimated GFR 59.86 (mL/min/1.73m2); Glucose 122 mg/dL (74-106); Potassium 4.9 mmol/L (3.5-5.1); Sodium 140 mmol/L (136-145); Total Protein 7.7 g/dL (6.4-8.2)
[2023-09-16] MEDS: Normal Saline Flush 10 ML SYR IVP (13:19)
[2023-09-16] MEDS: Normal Saline - Diluent 50 ML VIAL IJ (13:22)
[2023-09-16] MEDS: Omnipaque 350 MG/ML 500 ML BTL-Imaging package IJ (13:23)
== END ==
PROVIDERS: PCP Nurse Practitioner Family; Visit Provider Thoracic Surgery (Cardiothoracic Vascular Surgery)
DX: C34.11 Malignant neoplasm of upper lobe, right bronchus or lung (principal); G31.1 Senile degeneration of brain, not elsewhere classified
CPT/HCPCS: 80053; 70470; 85025

== ENCOUNTER 2023-10-21 04:43 | Outpatient (CLI) | payer MEDICARE, SELFPAY ==
[2023-10-21 10:02] LABS: Abs Immature Grans 0.02 10^3/uL (0.0-0.06); Absolute Basophil Count 0.07 10^3/uL (0.0-0.2); Absolute Eosinophil Count 0.14 10^3/uL (0.0-0.7); Absolute Lymphocyte Count 1.58 10^3/uL (1.2-3.4); Absolute Monocyte Count 0.64 10^3/uL (0.1-0.8); Absolute Neutrophil Count 5.03 10^3/uL (1.2-6.7); Basophils % 0.9; Eosinophils % 1.9; HCT 45.1 % (36.0-46.0); HGB 15.2 g/dL (11.2-15.7); Immature Grans % 0.3; Lymphocytes % 21.1; MCH 30.7 pg (27.0-33.0); MCHC 33.7 % (32.0-36.0); MCV 91 fL (80-95); Monocytes % 8.6; Neutrophils % 67.2; Platelet Count 232 10^3/uL (130-400); RBC 4.95 10^6/uL (3.93-5.22); RDW 13.2 % (11.7-14.6); RDW-SD 44.6 fL; WBC 7.48 10^3/uL (4.4-10.8)
[2023-10-21 10:16] LABS: ALT 22 U/L (14-59); AST 17 U/L (15-37); Albumin 3.3 g/dL (3.4-5.0); Alkaline Phosphatase 94 U/L (46-116); Anion Gap 8.1 mmol/L (3-11); BUN 23 mg/dL (7-18); Bilirubin, Total 0.6 mg/dL (0.2-1.0); CO2 25.9 mmol/L (21.0-32.0); CREATININE 1.2 mg/dL (0.55-1.02); Calcium 9.3 mg/dL (8.5-10.1); Chloride 105 mmol/L (98-107); Estimated GFR 48.09 (mL/min/1.73m2); Glucose 103 mg/dL (74-106); Potassium 4.1 mmol/L (3.5-5.1); Sodium 139 mmol/L (136-145); Total Protein 7.3 g/dL (6.4-8.2)
== END 2023-10-21 04:44 | disposition home or self-care (01) ==
LOC: LBO 04:43
PROVIDERS: PCP Nurse Practitioner Family; Visit Provider Internal Medicine Medical Oncology
DX: C34.11 Malignant neoplasm of upper lobe, right bronchus or lung (principal)
CPT/HCPCS: 36415; 80053; 83735; 85025

== ENCOUNTER 2023-11-10 02:38 | Outpatient (CLI) | payer MEDICARE, SELFPAY ==
[2023-11-10 07:28] LABS: Abs Immature Grans 0.07 10^3/uL (0.0-0.06); Absolute Basophil Count 0.07 10^3/uL (0.0-0.2); Absolute Eosinophil Count 0.15 10^3/uL (0.0-0.7); Absolute Lymphocyte Count 1.41 10^3/uL (1.2-3.4); Absolute Neutrophil Count 5.54 10^3/uL (1.2-6.7); Basophils % 0.9; HCT 43.8 % (36.0-46.0); HGB 14.7 g/dL (11.2-15.7); Immature Grans % 0.9; Lymphocytes % 18.5; MCH 30.2 pg (27.0-33.0); MCHC 33.6 % (32.0-36.0); MCV 90 fL (80-95); MPV 9.7 fL (8.0-11.0); Monocytes % 5.2; Neutrophils % 72.5; Platelet Count 228 10^3/uL (130-400); RBC 4.87 10^6/uL (3.93-5.22); RDW 13.2 % (11.7-14.6); RDW-SD 43.6 fL; WBC 7.64 10^3/uL (4.4-10.8)
[2023-11-10 07:47] LABS: ALT 23 U/L (14-59); AST 11 U/L (15-37); Albumin 3.1 g/dL (3.4-5.0); Alkaline Phosphatase 82 U/L (46-116); Anion Gap 11.7 mmol/L (3-11); BUN 28 mg/dL (7-18); Bilirubin, Total 0.6 mg/dL (0.2-1.0); CO2 21.3 mmol/L (21.0-32.0); CREATININE 1.1 mg/dL (0.55-1.02); Chloride 104 mmol/L (98-107); Estimated GFR 53.39 (mL/min/1.73m2); Glucose 170 mg/dL (74-106); Magnesium 1.8 mg/dL (1.8-2.4); Potassium 4.5 mmol/L (3.5-5.1); Sodium 137 mmol/L (136-145); Total Protein 6.9 g/dL (6.4-8.2)
== END 2023-11-10 02:39 | disposition home or self-care (01) ==
PROVIDERS: PCP Nurse Practitioner Family; Visit Provider Internal Medicine Medical Oncology
DX: C34.11 Malignant neoplasm of upper lobe, right bronchus or lung (principal)
CPT/HCPCS: 36415; 80053; 83735; 85025

== ENCOUNTER 2023-11-16 05:11 | Outpatient (CLI) | payer MEDICARE, SELFPAY ==
[2023-11-16 08:16] LABS: Abs Immature Grans 0.05 10^3/uL (0.0-0.06); Absolute Basophil Count 0.04 10^3/uL (0.0-0.2); Absolute Eosinophil Count 0.08 10^3/uL (0.0-0.7); Absolute Lymphocyte Count 0.62 10^3/uL (1.2-3.4); Absolute Monocyte Count 0.26 10^3/uL (0.1-0.8); Absolute Neutrophil Count 4.05 10^3/uL (1.2-6.7); Basophils % 0.8; Eosinophils % 1.6; HCT 42.5 % (36.0-46.0); HGB 14.5 g/dL (11.2-15.7); Lymphocytes % 12.2; MCH 30.7 pg (27.0-33.0); MCHC 34.1 % (32.0-36.0); MCV 90 fL (80-95); MPV 9.7 fL (8.0-11.0); Monocytes % 5.1; Neutrophils % 79.3; Platelet Count 211 10^3/uL (130-400); RBC 4.73 10^6/uL (3.93-5.22); RDW 13.1 % (11.7-14.6); RDW-SD 42.6 fL
[2023-11-16 08:36] LABS: ALT 24 U/L (14-59); AST 13 U/L (15-37); Alkaline Phosphatase 70 U/L (46-116); Anion Gap 7.1 mmol/L (3-11); BUN 27 mg/dL (7-18); Bilirubin, Total 0.6 mg/dL (0.2-1.0); CO2 21.9 mmol/L (21.0-32.0); CREATININE 1.1 mg/dL (0.55-1.02); Chloride 107 mmol/L (98-107); Estimated GFR 53.39 (mL/min/1.73m2); Glucose 121 mg/dL (74-106); Magnesium 1.9 mg/dL (1.8-2.4); Potassium 4.2 mmol/L (3.5-5.1); Sodium 136 mmol/L (136-145); Total Protein 6.8 g/dL (6.4-8.2)
== END 2023-11-16 05:12 | disposition home or self-care (01) ==
LOC: LBO 05:11
PROVIDERS: PCP Nurse Practitioner Family; Visit Provider Internal Medicine Medical Oncology
DX: C34.11 Malignant neoplasm of upper lobe, right bronchus or lung (principal)
CPT/HCPCS: 36415; 80053; 83735; 85025

== ENCOUNTER 2023-11-23 05:16 | Outpatient (CLI) | payer MEDICARE, SELFPAY ==
[2023-11-23 11:11] LABS: Abs Immature Grans 0.05 10^3/uL (0.0-0.06); Absolute Basophil Count 0.05 10^3/uL (0.0-0.2); Absolute Eosinophil Count 0.06 10^3/uL (0.0-0.7); Absolute Lymphocyte Count 0.58 10^3/uL (1.2-3.4); Absolute Neutrophil Count 2.98 10^3/uL (1.2-6.7); Basophils % 1.2; Eosinophils % 1.5; HCT 41.2 % (36.0-46.0); HGB 13.9 g/dL (11.2-15.7); Immature Grans % 1.2; Lymphocytes % 14.1; MCH 30.6 pg (27.0-33.0); MCHC 33.7 % (32.0-36.0); MCV 91 fL (80-95); MPV 9.5 fL (8.0-11.0); Monocytes % 9.7; Neutrophils % 72.3; Platelet Count 187 10^3/uL (130-400); RBC 4.54 10^6/uL (3.93-5.22); RDW 13.4 % (11.7-14.6); RDW-SD 43.5 fL; WBC 4.12 10^3/uL (4.4-10.8)
[2023-11-23 11:28] LABS: ALT 24 U/L (14-59); AST 14 U/L (15-37); Albumin 3.1 g/dL (3.4-5.0); Alkaline Phosphatase 74 U/L (46-116); Anion Gap 9.3 mmol/L (3-11); BUN 19 mg/dL (7-18); Bilirubin, Total 0.4 mg/dL (0.2-1.0); CO2 22.7 mmol/L (21.0-32.0); Calcium 9.1 mg/dL (8.5-10.1); Chloride 106 mmol/L (98-107); Estimated GFR 59.86 (mL/min/1.73m2); Glucose 109 mg/dL (74-106); Magnesium 1.9 mg/dL (1.8-2.4); Potassium 4.4 mmol/L (3.5-5.1); Sodium 138 mmol/L (136-145); Total Protein 6.8 g/dL (6.4-8.2)
== END 2023-11-23 05:17 | disposition home or self-care (01) ==
LOC: LBO 05:16
PROVIDERS: PCP Nurse Practitioner Family; Visit Provider Internal Medicine Medical Oncology
DX: C34.11 Malignant neoplasm of upper lobe, right bronchus or lung (principal)
CPT/HCPCS: 36415; 80053; 83735; 85025

== ENCOUNTER 2023-12-07 03:08 | Outpatient (RCR) | payer MEDICARE, SELFPAY ==
[2023-11-30] MEDS: Normal Saline Flush 10 ML SYR IVP (08:41)
[2023-11-30 09:16] LABS: Abs Immature Grans 0.03 10^3/uL (0.0-0.06); Absolute Basophil Count 0.03 10^3/uL (0.0-0.2); Absolute Eosinophil Count 0.06 10^3/uL (0.0-0.7); Absolute Lymphocyte Count 0.46 10^3/uL (1.2-3.4); Absolute Monocyte Count 0.25 10^3/uL (0.1-0.8); Absolute Neutrophil Count 2.66 10^3/uL (1.2-6.7); Basophils % 0.9; Eosinophils % 1.7; HCT 38.8 % (36.0-46.0); HGB 13.3 g/dL (11.2-15.7); Immature Grans % 0.9; Lymphocytes % 13.2; MCH 30.9 pg (27.0-33.0); MCHC 34.3 % (32.0-36.0); MCV 90 fL (80-95); Monocytes % 7.2; Neutrophils % 76.1; Platelet Count 121 10^3/uL (130-400); RDW 13.6 % (11.7-14.6); RDW-SD 43.1 fL; WBC 3.49 10^3/uL (4.4-10.8)
[2023-11-30 09:40] LABS: ALT 24 U/L (14-59); AST 14 U/L (15-37); Albumin 3.1 g/dL (3.4-5.0); Alkaline Phosphatase 71 U/L (46-116); Anion Gap 10.6 mmol/L (3-11); BUN 20 mg/dL (7-18); Bilirubin, Total 0.6 mg/dL (0.2-1.0); CO2 23.4 mmol/L (21.0-32.0); CREATININE 1.1 mg/dL (0.55-1.02); Calcium 9.2 mg/dL (8.5-10.1); Chloride 107 mmol/L (98-107); Estimated GFR 53.39 (mL/min/1.73m2); Glucose 135 mg/dL (74-106); Magnesium 1.8 mg/dL (1.8-2.4); Sodium 141 mmol/L (136-145); Total Protein 6.6 g/dL (6.4-8.2)
[2023-12-07] MEDS: Normal Saline Flush 10 ML SYR IVP (09:15)
[2023-12-07 09:33] LABS: Abs Immature Grans 0.01 10^3/uL (0.0-0.06); Absolute Basophil Count 0.03 10^3/uL (0.0-0.2); Absolute Eosinophil Count 0.05 10^3/uL (0.0-0.7); Absolute Lymphocyte Count 0.34 10^3/uL (1.2-3.4); Absolute Monocyte Count 0.18 10^3/uL (0.1-0.8); Basophils % 1.4; Eosinophils % 2.4; HCT 36.3 % (36.0-46.0); HGB 12.4 g/dL (11.2-15.7); Immature Grans % 0.5; Lymphocytes % 16.1; MCH 30.8 pg (27.0-33.0); MCHC 34.2 % (32.0-36.0); MCV 90 fL (80-95); Monocytes % 8.5; Neutrophils % 71.1; RBC 4.02 10^6/uL (3.93-5.22); RDW-SD 43.8 fL; WBC 2.11 10^3/uL (4.4-10.8)
[2023-12-07 09:42] LABS: Diff Comment Diff Reviewed; Platelet Count 98 10^3/uL (130-400); Polychromasia Present
[2023-12-07 09:54] LABS: ALT 25 U/L (14-59); AST 15 U/L (15-37); Albumin 3.1 g/dL (3.4-5.0); Alkaline Phosphatase 65 U/L (46-116); Anion Gap 9.2 mmol/L (3-11); BUN 23 mg/dL (7-18); Bilirubin, Total 0.6 mg/dL (0.2-1.0); CO2 23.8 mmol/L (21.0-32.0); Calcium 9.1 mg/dL (8.5-10.1); Chloride 108 mmol/L (98-107); Estimated GFR 59.86 (mL/min/1.73m2); Glucose 152 mg/dL (74-106); Magnesium 1.7 mg/dL (1.8-2.4); Sodium 141 mmol/L (136-145); Total Protein 6.6 g/dL (6.4-8.2)
== END 2023-12-09 23:59 | disposition home or self-care (01) ==
LOC: INF 03:08
PROVIDERS: PCP Nurse Practitioner Family; Visit Provider Internal Medicine Medical Oncology
DX: C34.11 Malignant neoplasm of upper lobe, right bronchus or lung (principal); Z45.2 Encounter for adjustment and management of vascular access device
CPT/HCPCS: 36591; 80053; 83735; 85025

== ENCOUNTER → 2023-12-22 02:45 | Outpatient (CLI) | payer MEDICARE, SELFPAY ==
--- NOTE | 2023-12-22 | DI.CT_ITS ---
Exam(s) CT CHEST W EXAM: CT CHEST W CLINICAL HISTORY: RUL LUNG CA,C34.11.S/P CHEMO,RT,RESTAGING EXAM TECHNIQUE: Imaging Protocol: Axial computed tomography images with coronal and sagittal reformatted images were created and reviewed CONTRAST MATERIAL: Intravenous: Omnipaque 350Contrast volume:70 mL. COMPARISON: CT CT CHEST W from 08/07/2023 FINDINGS: Tracheobronchial tree: Patent where visualized. Pulmonary parenchyma: Moderate centrilobular emphysematous changes are present. There is a periphera l 3 mm nodule in the left upper lobe. (Series 3, image 263). There is a stable 8 mm nodule in the p osterior aspect of the left lower lobe (series 3, image 389). Using similar measuring techniques as before, the right upper lobe mass measures 2.6 x 2.0 cm. (Series 3, image 245). This compares to 3. 2 x 2.9 cm. No new pulmonary nodules are seen. No focal consolidating infiltrates are present. Mediastinum and Kassie: No dominant adenopathy or fluid collection. The esophagus is unremarkable. The re has been decrease in size of the right hilar lymph node. It measures 1.0 cm. (Series 3, image 34 3). This compares to 1.8 cm on the prior examination. Thyroid gland: There is a 3 mm nodule in the left lobe of the thyroid gland. No follow-up is recomme nded. Pleura: No effusion or pneumothorax. Heart: The heart is not dilated. Coronary artery calcification and/or stents are present. No pericar dial effusion. Aorta: Thoracic aorta non-dilated. Atherosclerosis is present. Pulmonary arteries: Due to the timing of the bolus, pulmonary artery opacification is suboptimal for evaluation of pulmonary emboli. Upper abdomen: Unremarkable. Lymph nodes: No axillary adenopathy. Bones: Within normal limits for the patient's age. Tubes, Catheters, and Lines: There is a left-sided Trwbhp-P-Gogn catheter in place. Soft tissues: Unremarkable. IMPRESSION: 1. Interval decrease in size of the right upper lobe mass in the right hilar lymph node. No evidence of progression of disease. 2. Stable left lower lobe pulmonary nodule. 3. Moderate centrilobular emphysema. RADIATION DOSE DELIVERED: 723.82mGy.cm Total DLP DATA REPOSITORY: All CT scans at this facility are submitted to the National Radiology Data Registry (NRDR) Dose Index Registry (DIR) with the [employer] (ACR). RADIATION OPTIMIZATION: All CT scans at this facility use at least one of these dose optimization te chniques: automated exposure control; mA and/or kV adjustment per patient size (includes targeted exa ms where dose is matched to clinical indication); or iterative reconstruction.
[2023-12-22] MEDS: Normal Saline - Diluent 50 ML VIAL IJ (12:38)
[2023-12-22] MEDS: Omnipaque 350 MG/ML 100 ML BTL 70 ML IJ (12:38)
[2023-12-22] MEDS: Normal Saline Flush 10 ML SYR IVP (12:39)
== END ==
PROVIDERS: PCP Nurse Practitioner Family; Visit Provider Internal Medicine Medical Oncology
DX: C34.11 Malignant neoplasm of upper lobe, right bronchus or lung (principal)
CPT/HCPCS: 71260; J3490

== ENCOUNTER 2023-12-30 01:20 | Outpatient (RCR) | payer MEDICARE, SELFPAY ==
[2023-12-14] MEDS: Normal Saline Flush 10 ML SYR IVP (08:36)
[2023-12-14 09:05] LABS: Abs Immature Grans 0.02 10^3/uL (0.0-0.06); Absolute Basophil Count 0.02 10^3/uL (0.0-0.2); Absolute Eosinophil Count 0.02 10^3/uL (0.0-0.7); Absolute Lymphocyte Count 0.31 10^3/uL (1.2-3.4); Absolute Monocyte Count 0.19 10^3/uL (0.1-0.8); Absolute Neutrophil Count 1.17 10^3/uL (1.2-6.7); Basophils % 1.2; Eosinophils % 1.2; HCT 33.4 % (36.0-46.0); HGB 11.5 g/dL (11.2-15.7); Immature Grans % 1.2; Lymphocytes % 17.9; MCH 31.4 pg (27.0-33.0); MCHC 34.4 % (32.0-36.0); MCV 91 fL (80-95); MPV 10.4 fL (8.0-11.0); Neutrophils % 67.5; Platelet Count 122 10^3/uL (130-400); RBC 3.66 10^6/uL (3.93-5.22); RDW 14.4 % (11.7-14.6); RDW-SD 44.8 fL
[2023-12-14 09:21] LABS: ALT 26 U/L (14-59); AST 14 U/L (15-37); Alkaline Phosphatase 68 U/L (46-116); Anion Gap 10.8 mmol/L (3-11); BUN 30 mg/dL (7-18); Bilirubin, Total 0.5 mg/dL (0.2-1.0); CO2 23.2 mmol/L (21.0-32.0); CREATININE 1.1 mg/dL (0.55-1.02); Chloride 107 mmol/L (98-107); Estimated GFR 53.39 (mL/min/1.73m2); Glucose 151 mg/dL (74-106); Magnesium 1.7 mg/dL (1.8-2.4); Sodium 141 mmol/L (136-145); Total Protein 6.5 g/dL (6.4-8.2)
[2023-12-14 09:35] LABS: WBC 1.73 10^3/uL (4.4-10.8)
[2023-12-14 09:36] LABS: Diff Comment Diff Reviewed; RBC Morphology Normal
[2023-12-22] MEDS: Normal Saline Flush 10 ML SYR IVP (12:24)
[2023-12-30] MEDS: Normal Saline Flush 10 ML SYR IVP (08:50)
[2023-12-30 09:37] LABS: Abs Immature Grans 0.05 10^3/uL (0.0-0.06); Absolute Basophil Count 0.04 10^3/uL (0.0-0.2); Absolute Eosinophil Count 0.01 10^3/uL (0.0-0.7); Absolute Lymphocyte Count 0.37 10^3/uL (1.2-3.4); Absolute Monocyte Count 0.84 10^3/uL (0.1-0.8); Absolute Neutrophil Count 2.34 10^3/uL (1.2-6.7); Basophils % 1.1; Eosinophils % 0.3; HCT 33.7 % (36.0-46.0); HGB 11.2 g/dL (11.2-15.7); Immature Grans % 1.4; Lymphocytes % 10.1; MCH 31.3 pg (27.0-33.0); MCHC 33.2 % (32.0-36.0); MCV 94 fL (80-95); MPV 9.6 fL (8.0-11.0); Neutrophils % 64.1; Platelet Count 213 10^3/uL (130-400); RBC 3.58 10^6/uL (3.93-5.22); RDW 18.7 % (11.7-14.6); RDW-SD 61.9 fL; WBC 3.65 10^3/uL (4.4-10.8)
[2023-12-30 10:10] LABS: ALT 24 U/L (14-59); AST 16 U/L (15-37); Albumin 3.1 g/dL (3.4-5.0); Alkaline Phosphatase 79 U/L (46-116); Anion Gap 11.5 mmol/L (3-11); BUN 18 mg/dL (7-18); Bilirubin, Total 0.6 mg/dL (0.2-1.0); CO2 21.5 mmol/L (21.0-32.0); CREATININE 1.2 mg/dL (0.55-1.02); Calcium 9.1 mg/dL (8.5-10.1); Chloride 108 mmol/L (98-107); Estimated GFR 48.09 (mL/min/1.73m2); Glucose 126 mg/dL (74-106); Potassium 3.9 mmol/L (3.5-5.1); Sodium 141 mmol/L (136-145); Total Protein 6.9 g/dL (6.4-8.2)
[2023-12-30 11:09] LABS: FREE T4 0.81 ng/dL (0.76-1.46); TSH 2.03 uIU/mL (0.36-3.74)
== END 2024-01-07 23:59 | disposition home or self-care (01) ==
LOC: INF 01:20
PROVIDERS: Nurse Practitioner Family; PCP Nurse Practitioner Family; Visit Provider Internal Medicine Medical Oncology
DX: C34.11 Malignant neoplasm of upper lobe, right bronchus or lung (principal); Z79.899 Other long term (current) drug therapy; Z45.2 Encounter for adjustment and management of vascular access device
CPT/HCPCS: 36591; 80053; 96523; 83735; 84439; 84443; 85025

== ENCOUNTER 2024-02-03 10:30 | Outpatient (RCR) | payer MEDICARE, SELFPAY ==
[2024-01-25] MEDS: Normal Saline Flush 10 ML SYR IVP (12:55)
[2024-01-25 13:31] LABS: Abs Immature Grans 0.03 10^3/uL (0.0-0.06); Absolute Basophil Count 0.03 10^3/uL (0.0-0.2); Absolute Eosinophil Count 0.18 10^3/uL (0.0-0.7); Absolute Lymphocyte Count 0.52 10^3/uL (1.2-3.4); Absolute Monocyte Count 0.47 10^3/uL (0.1-0.8); Absolute Neutrophil Count 5.16 10^3/uL (1.2-6.7); Basophils % 0.5; Eosinophils % 2.8; HCT 34.4 % (36.0-46.0); HGB 11.1 g/dL (11.2-15.7); Immature Grans % 0.5; Lymphocytes % 8.1; MCH 30.3 pg (27.0-33.0); MCHC 32.3 % (32.0-36.0); MCV 94 fL (80-95); MPV 10.2 fL (8.0-11.0); Monocytes % 7.4; Neutrophils % 80.7; Platelet Count 183 10^3/uL (130-400); RBC 3.66 10^6/uL (3.93-5.22); RDW-SD 58.5 fL; WBC 6.39 10^3/uL (4.4-10.8)
[2024-01-25 13:52] LABS: ALT 16 U/L (14-59); AST 14 U/L (15-37); Albumin 2.5 g/dL (3.4-5.0); Alkaline Phosphatase 68 U/L (46-116); Anion Gap 13.1 mmol/L (3-11); BUN 20 mg/dL (7-18); Bilirubin, Total 0.4 mg/dL (0.2-1.0); CO2 19.9 mmol/L (21.0-32.0); Calcium 8.3 mg/dL (8.5-10.1); Chloride 108 mmol/L (98-107); Estimated GFR 59.86 (mL/min/1.73m2); FREE T4 1.02 ng/dL (0.76-1.46); Glucose 118 mg/dL (74-106); Magnesium 1.8 mg/dL (1.8-2.4); Potassium 3.5 mmol/L (3.5-5.1); Sodium 141 mmol/L (136-145); TSH 0.62 uIU/Ml (0.36-3.74); Total Protein 6.3 g/dL (6.4-8.2)
[2024-02-03] MEDS: Normal Saline Flush 10 ML SYR IVP (10:37)
[2024-02-03 11:12] LABS: Abs Immature Grans 0.03 10^3/uL (0.0-0.06); Absolute Basophil Count 0.02 10^3/uL (0.0-0.2); Absolute Eosinophil Count 0.21 10^3/uL (0.0-0.7); Absolute Lymphocyte Count 0.55 10^3/uL (1.2-3.4); Absolute Neutrophil Count 4.55 10^3/uL (1.2-6.7); Basophils % 0.3; Eosinophils % 3.5; HCT 37.4 % (36.0-46.0); HGB 11.7 g/dL (11.2-15.7); Immature Grans % 0.5; Lymphocytes % 9.1; MCHC 31.3 % (32.0-36.0); MCV 96 fL (80-95); MPV 9.8 fL (8.0-11.0); Monocytes % 11.6; Platelet Count 186 10^3/uL (130-400); RDW 16.9 % (11.7-14.6); RDW-SD 59.3 fL; WBC 6.06 10^3/uL (4.4-10.8)
[2024-02-03 11:36] LABS: ALT 21 U/L (14-59); AST 13 U/L (15-37); Albumin 2.7 g/dL (3.4-5.0); Alkaline Phosphatase 78 U/L (46-116); BUN 20 mg/dL (7-18); Bilirubin, Total 0.5 mg/dL (0.2-1.0); Calcium 8.9 mg/dL (8.5-10.1); Chloride 104 mmol/L (98-107); Estimated GFR 59.86 (mL/min/1.73m2); FREE T4 0.88 ng/dL (0.76-1.46); Glucose 118 mg/dL (74-106); Sodium 136 mmol/L (136-145); TSH 1.26 uIU/Ml (0.36-3.74); Total Protein 6.6 g/dL (6.4-8.2)
== END 2024-02-07 23:59 | disposition home or self-care (01) ==
LOC: INF 10:30
PROVIDERS: PCP Nurse Practitioner Family; Visit Provider Internal Medicine Medical Oncology
DX: C34.11 Malignant neoplasm of upper lobe, right bronchus or lung (principal); Z79.899 Other long term (current) drug therapy; Z45.2 Encounter for adjustment and management of vascular access device
CPT/HCPCS: 36591; 80053; 83735; 84439; 84443; 85025

== ENCOUNTER → 2024-03-02 04:20 | Outpatient (CLI) | payer MEDICARE, SELFPAY ==
--- NOTE | 2024-03-02 | DI.CT_ITS ---
Exam(s) CT CHEST W EXAM: CT CHEST W CLINICAL HISTORY: C34.11 Primary Malig Neop RT upper lobe lung, Assess treatment response TECHNIQUE: Imaging Protocol: Axial computed tomography images with coronal and sagittal reformatted images were created and reviewed CONTRAST MATERIAL: Intravenous: Omnipaque 350Contrast volume:70 mL. COMPARISON: CT CT CHEST W from 08/07/[address] CHEST W from 12/22/2023 FINDINGS: Tracheobronchial tree: Patent where visualized. Pulmonary parenchyma: The left lower lobe pulmonary nodule measures 9.5 mm compared to 8.3 on the [place] or examination (series 5, image 368). Centrilobular emphysematous changes are present in the lungs. There is a 7.7 mm nodule in the periphery of the right lobe (series 5, image 371). Previously, this nodule measures 6 mm. Since the prior examination there has been worsening opacity in the right upp er lobe. There are now opacities throughout the right upper lobe and in the central right lower lobe . There is resultant bronchiectasis and loss of volume in the right upper lobe. There is also worse bro peripheral interstitial thickening in the left upper lobe anteriorly. There is also a new right pleural effusion which predominantly appears to lie within the right major fissure posteriorly. The nodule in the periphery of the left upper lobe is unchanged (series 5, image 248). Mediastinum and Kassie: There are stable mediastinal and right hilar lymph nodes. There is a small hia jamil hernia. There is a shift of the mediastinum to the right likely secondary to the loss of volume in the right upper lobe since the prior examination. Thyroid gland: Unremarkable. Pleura: No left pleural effusion. Heart: The heart is not dilated. Coronary artery calcification and/or stents. No pericardial effusio n. Aorta: Thoracic aorta non-dilated. No evidence of dissection. Atherosclerotic calcification is prese nt. Pulmonary arteries: Due to the timing of the bolus the peripheral pulmonary arteries are not well opa cified. No large central pulmonary embolus is seen. Upper abdomen: There is a stable cyst in the left lobe of the liver. Lymph nodes: No axillary adenopathy is present. Bones: Within normal limits for the patient's age. Tubes, Catheters, and Lines: There is a left-sided port in place. Soft tissues: Unremarkable. IMPRESSION: 1. Since the prior examination, there are increased opacities in the right upper lobe in the central right lower lobe with bronchiectasis, loss of volume of the right upper lobe and a rightward mediasti nal shift. There also slight increased interstitial infiltrates in the periphery of the left upper l obe. There is also a small right pleural effusion within the right major fissure superiorly. The fi ndings may be sequelae of radiation therapy. Other considerations include progression of neoplasm, p neumonia or atelectasis. 2. Slight interval increase in size of the right lower lobe and left lower lobe pulmonary nodules. 3. Stable mediastinal and right hilar adenopathy. RADIATION DOSE DELIVERED: 566.98mGy.cm Total DLP DATA REPOSITORY: All CT scans at this facility are submitted to the National Radiology Data Registry (NRDR) Dose Index Registry (DIR) with the [employer] (ACR). RADIATION OPTIMIZATION: All CT scans at this facility use at least one of these dose optimization te chniques: automated exposure control; mA and/or kV adjustment per patient size (includes targeted exa ms where dose is matched to clinical indication); or iterative reconstruction.
[2024-03-02] MEDS: Normal Saline - Diluent 50 ML VIAL IJ (12:49)
[2024-03-02] MEDS: Omnipaque 350 MG/ML 500 ML BTL-Imaging package 70 ML IJ (12:50)
== END ==
PROVIDERS: PCP Nurse Practitioner Family; Visit Provider Nurse Practitioner Family
DX: R91.1 Solitary pulmonary nodule; J85.3 Abscess of mediastinum; C34.11 Malignant neoplasm of upper lobe, right bronchus or lung
CPT/HCPCS: 71260

== ENCOUNTER 2024-03-07 05:28 | Outpatient (RCR) | payer MEDICARE, SELFPAY ==
[2024-03-02] MEDS: Normal Saline Flush 10 ML SYR IVP (12:38)
[2024-03-07] MEDS: Normal Saline Flush 10 ML SYR IVP (10:05)
[2024-03-07 10:13] LABS: Abs Immature Grans 0.04 10^3/uL (0.0-0.06); Absolute Basophil Count 0.05 10^3/uL (0.0-0.2); Absolute Eosinophil Count 0.19 10^3/uL (0.0-0.7); Absolute Lymphocyte Count 0.68 10^3/uL (1.2-3.4); Absolute Monocyte Count 0.74 10^3/uL (0.1-0.8); Basophils % 0.7; Eosinophils % 2.5; HCT 39.1 % (36.0-46.0); HGB 12.8 g/dL (11.2-15.7); Immature Grans % 0.5; Lymphocytes % 8.9; MCH 29.6 pg (27.0-33.0); MCHC 32.7 % (32.0-36.0); MCV 90 fL (80-95); MPV 9.9 fL (8.0-11.0); Monocytes % 9.7; Neutrophils % 77.7; Platelet Count 228 10^3/uL (130-400); RBC 4.33 10^6/uL (3.93-5.22); RDW 15.4 % (11.7-14.6); RDW-SD 51.3 fL
[2024-03-07 10:36] LABS: ALT 20 U/L (14-59); AST 12 U/L (15-37); Alkaline Phosphatase 82 U/L (46-116); Anion Gap 9.9 mmol/L (3-11); BUN 20 mg/dL (7-18); Bilirubin, Total 0.3 mg/dL (0.2-1.0); CO2 24.1 mmol/L (21.0-32.0); CREATININE 0.9 mg/dL (0.55-1.02); Calcium 9.2 mg/dL (8.5-10.1); Chloride 108 mmol/L (98-107); Estimated GFR 67.92 (mL/min/1.73m2); FREE T4 0.81 ng/dL (0.76-1.46); Glucose 107 mg/dL (74-106); Potassium 4.1 mmol/L (3.5-5.1); Sodium 142 mmol/L (136-145); TSH 2.13 uIU/Ml (0.36-3.74); Total Protein 6.9 g/dL (6.4-8.2)
== END 2024-03-08 23:59 | disposition home or self-care (01) ==
LOC: INF 05:28
PROVIDERS: PCP Nurse Practitioner Family; Visit Provider Internal Medicine Medical Oncology
DX: Z45.2 Encounter for adjustment and management of vascular access device (principal); Z79.899 Other long term (current) drug therapy; C34.11 Malignant neoplasm of upper lobe, right bronchus or lung
CPT/HCPCS: 36591; 80053; 96523; 83735; 84439; 84443; 85025

== ENCOUNTER → 2024-04-12 03:37 | Outpatient (CLI) | payer MEDICARE, SELFPAY ==
--- NOTE | 2024-04-12 | DI.CT_ITS ---
Exam(s) CT CHEST W EXAM: CT CHEST W CLINICAL HISTORY: Primary malignant neoplasm of RUL of lung, C34.11. TECHNIQUE: Multi planar reconstructions were performed. CONTRAST MATERIAL: Omnipaque 350; 75 cc COMPARISON: CT CT CHEST W from 12/22/[address] CHEST W from 03/02/2024 FINDINGS: CHEST: LUNGS: When compared to the most recent CT scan of 03/02/2024, the large right upper lung infiltrate has slightly decreased in size.. There is no associated pleural effusion and no new additional right lung nodules. No new findings in the trachea and mainstem bronchi. Mild decrease in right hilar ad enopathy. In the opposite-left lung the amount of mild subpleural infiltrate in the anterior segment of the lef t lower lobe has decreased but not completely resolved. The left lower lobe nodule measures 8 mm, un changed. There are no new additional left lung nodules and there are no pleural effusions on either side. MEDIASTINUM: Mild right hilar adenopathy but appears decreased from previous. Left hilum unremarkabl e. No subcarinal adenopathy seen. There is no adenopathy in the anterior mediastinal fat nor in the paratracheal region. Visualized thyroid unremarkable. CARDIAC: Heart size is normal. There is no pericardial effusion.Caliber of the thoracic aorta is wit hin normal limits. VISUALIZED UPPER ABDOMEN:There are no significant adrenal masses. Benign-appearing cyst in the left hepatic lobe is unchanged. No new intrahepatic findings. No splenomegaly. No adrenal masses. OSSEOUS: No significant osseous lesions.. IMPRESSION: 1. Mild improvement when compared to the most recent CT scan of 03/02/2024. The right upper lobe mas s infiltrate has slightly decreased in size and there are no new additional right lung findings nor p leural effusions. The left lower lobe nodule is unchanged in size and amount of subpleural infiltrat e in the left upper lobe is decreased. 2. There are no pleural effusions. 3. No adrenal masses. RADIATION DOSE DELIVERED: 671.48mGy.cm Total DLP DATA REPOSITORY: All CT scans at this facility are submitted to the National Radiology Data Registry (NRDR) Dose Index Registry (DIR) with the [employer] (ACR). RADIATION OPTIMIZATION: All CT scans at this facility use at least one of these dose optimization te chniques: automated exposure control; mA and/or kV adjustment per patient size (includes targeted exa ms where dose is matched to clinical indication); or iterative reconstruction.
[2024-04-12] MEDS: Omnipaque 350 MG/ML 100 ML BTL IJ (13:19)
[2024-04-12] MEDS: Normal Saline - Diluent 50 ML VIAL IJ (13:20)
== END ==
PROVIDERS: PCP Nurse Practitioner Family; Visit Provider Nurse Practitioner Family
DX: C34.11 Malignant neoplasm of upper lobe, right bronchus or lung (principal)
CPT/HCPCS: 36415; 80053; 71260; 83735; 84439; 84443; 85025; J3490

== ENCOUNTER 2024-04-12 04:35 | Outpatient (RCR) | payer MEDICARE, SELFPAY ==
[2024-04-12] MEDS: Normal Saline Flush 10 ML SYR IVP (12:05)
[2024-04-12 12:15] LABS: Abs Immature Grans 0.07 10^3/uL (0.0-0.06); Absolute Basophil Count 0.04 10^3/uL (0.0-0.2); Absolute Eosinophil Count 0.07 10^3/uL (0.0-0.7); Absolute Monocyte Count 0.36 10^3/uL (0.1-0.8); Absolute Neutrophil Count 7.46 10^3/uL (1.2-6.7); Basophils % 0.5 %; Eosinophils % 0.8 %; HCT 41.9 % (36.0-46.0); HGB 13.6 g/dL (11.2-15.7); Immature Grans % 0.8 %; Lymphocytes % 4.8 %; MCH 28.9 pg (27.0-33.0); MCHC 32.5 % (32.0-36.0); MCV 89 fL (80-95); MPV 9.2 fL (8.0-11.0); Monocytes % 4.3 %; Neutrophils % 88.8 %; Platelet Count 157 10^3/uL (130-400); RDW-SD 55.8 fL
[2024-04-12 12:39] LABS: ALT 31 U/L (14-59); AST 12 U/L (15-37); Alkaline Phosphatase 75 U/L (46-116); BUN 24 mg/dL (7-18); Bilirubin, Total 0.4 mg/dL (0.2-1.0); Calcium 8.7 mg/dL (8.5-10.1); Chloride 107 mmol/L (98-107); Estimated GFR 59.86 (mL/min/1.73m2); Glucose 135 mg/dL (74-106); HDL Cholesterol 68 mg/dL (40-60); LDL CHOLESTEROL 85 mg/dL (<100); Magnesium 1.8 mg/dL (1.8-2.4); Potassium 4.1 mmol/L (3.5-5.1); Sodium 141 mmol/L (136-145); TSH 0.85 uIU/Ml (0.36-3.74); Total Protein 6.5 g/dL (6.4-8.2)
[2024-04-12 12:58] LABS: Creatine Kinase 33 U/L (26-192); FREE T4 0.73 ng/dL (0.76-1.46)
== END 2024-05-08 23:59 | disposition home or self-care (01) ==
LOC: INF 04:35
PROVIDERS: PCP Nurse Practitioner Family; Visit Provider Internal Medicine Medical Oncology
DX: C34.11 Malignant neoplasm of upper lobe, right bronchus or lung (principal); Z79.899 Other long term (current) drug therapy; Z45.2 Encounter for adjustment and management of vascular access device
CPT/HCPCS: 36591; 80053; 82550; 83721; 83718; 83735; 84439; 84443; 85025

== ENCOUNTER 2024-07-13 00:55 | Outpatient (CLI) | payer MEDICARE, SELFPAY ==
--- NOTE | 2024-07-13 | DI.CT_ITS ---
Exam(s) CT CHEST W EXAM: CT CHEST W CLINICAL HISTORY: PRIMARY CANCER OR R UPPER LOBE OF LUNG, C34.11,restaging exam. TECHNIQUE: Multi planar reconstructions were performed. CONTRAST MATERIAL: Omnipaque 350; 75 cc COMPARISON: CT CT CHEST W from 04/12/2024 FINDINGS: CHEST: LUNGS: The prominent right upper lobe infiltrate appears relatively stable when compared to 4. No new additional focal right lung findings. There is an unchanged left lower lobe nodule measur ing 8 mm, unchanged. There are no new lung nodules evident. There are no pleural effusions. Trache a and mainstem bronchi are patent. Distal tip of the left supra clavi in Port-A-Cath is in the SVC. MEDIASTINUM: Right hilum appears unchanged without increasing adenopathy at this level nor in the sub carinal region. Opposite-left hilum is unremarkable. There is no adenopathy in the anterior mediast inal fat. Visualized thyroid appears unremarkable. CARDIAC: Heart size is normal. There is no pericardial effusion.Thoracic aorta normal size. VISUALIZED UPPER ABDOMEN:There are no significant adrenal masses. Left hepatic lobe cyst remains unc hanged. No new metastatic appearing lesions seen in the liver. Spleen size normal. OSSEOUS: No significant osseous lesions.No fractures.. IMPRESSION: 1. Compared to the prior CT scan of 04/12/2024 there is stable relatively unchanged appearance of the previously described right upper lobe mass infiltrate with no new focal right lung findings nor pleu ral effusions nor increasing hilar/mediastinal adenopathy. 2. 8 millimeter solitary left lung nodule remains unchanged (left lower lobe) 3. No new upper abdominal findings. RADIATION DOSE DELIVERED: 189.48mGy.cm Total DLP DATA REPOSITORY: All CT scans at this facility are submitted to the National Radiology Data Registry (NRDR) Dose Index Registry (DIR) with the [employer] (ACR). RADIATION OPTIMIZATION: All CT scans at this facility use at least one of these dose optimization te chniques: automated exposure control; mA and/or kV adjustment per patient size (includes targeted exa ms where dose is matched to clinical indication); or iterative reconstruction.
[2024-07-13] MEDS: Omnipaque 350 MG/ML 100 ML BTL IJ (14:28)
[2024-07-13] MEDS: Normal Saline - Diluent 50 ML VIAL IJ (14:29)
== END 2024-07-13 01:15 ==
LOC: DI 00:55
PROVIDERS: PCP Nurse Practitioner Family; Visit Provider Internal Medicine Medical Oncology
DX: C34.11 Malignant neoplasm of upper lobe, right bronchus or lung (principal)
CPT/HCPCS: 71260; J3490

== ENCOUNTER 2024-07-13 01:12 | Outpatient (RCR) | payer MEDICARE, SELFPAY ==
[2024-07-13] MEDS: Normal Saline Flush 10 ML SYR IVP (13:03)
[2024-07-13 13:44] LABS: Abs Immature Grans 0.02 10^3/uL (0.0-0.06); Absolute Basophil Count 0.05 10^3/uL (0.0-0.2); Absolute Eosinophil Count 0.13 10^3/uL (0.0-0.7); Absolute Lymphocyte Count 1.13 10^3/uL (1.2-3.4); Absolute Monocyte Count 0.62 10^3/uL (0.1-0.8); Basophils % 0.8 %; HCT 42.1 % (36.0-46.0); HGB 13.7 g/dL (11.2-15.7); Immature Grans % 0.3 %; Lymphocytes % 17.5 %; MCH 29.6 pg (27.0-33.0); MCHC 32.5 % (32.0-36.0); MCV 91 fL (80-95); MPV 9.5 fL (8.0-11.0); Monocytes % 9.6 %; Neutrophils % 69.8 %; Platelet Count 165 10^3/uL (130-400); RBC 4.63 10^6/uL (3.93-5.22); RDW 13.7 % (11.7-14.6); RDW-SD 46.2 fL; WBC 6.45 10^3/uL (4.4-10.8)
[2024-07-13 14:17] LABS: ALT 18 U/L (14-59); AST 15 U/L (15-37); Albumin 3.2 g/dL (3.4-5.0); Alkaline Phosphatase 100 U/L (46-116); Anion Gap 8.3 mmol/L (3-11); BUN 24 mg/dL (7-18); Bilirubin, Total 0.24 mg/dL (0.2-1.0); CO2 24.7 mmol/L (21.0-32.0); CREATININE 1.1 mg/dL (0.55-1.02); Calcium 9.1 mg/dL (8.5-10.1); Chloride 109 mmol/L (98-107); Estimated GFR 53.06 (mL/min/1.73m2); FREE T4 0.79 ng/dL (0.76-1.46); Glucose 100 mg/dL (74-106); Potassium 4.1 mmol/L (3.5-5.1); Sodium 142 mmol/L (136-145); Total Protein 6.8 g/dL (6.4-8.2)
== END 2024-08-08 23:59 | disposition home or self-care (01) ==
LOC: INF 01:12
PROVIDERS: PCP Nurse Practitioner Family; Visit Provider Internal Medicine Medical Oncology
DX: C34.11 Malignant neoplasm of upper lobe, right bronchus or lung (principal); Z79.899 Other long term (current) drug therapy
CPT/HCPCS: 36591; 80053; 83735; 84439; 84443; 85025

== ENCOUNTER 2024-08-17 01:27 | Outpatient (RCR) | payer MEDICARE, SELFPAY ==
[2024-08-17] MEDS: Normal Saline Flush 10 ML SYR IVP (14:48)
[2024-08-17] MEDS: Heparin 500 UNITS/5 ML SYRINGE IV (14:49)
== END 2024-09-08 23:59 | disposition home or self-care (01) ==
LOC: INF 01:27
PROVIDERS: PCP Nurse Practitioner Family; Visit Provider Internal Medicine Medical Oncology
DX: Z45.2 Encounter for adjustment and management of vascular access device
CPT/HCPCS: 96523; J1642

== ENCOUNTER 2024-09-19 02:36 | Outpatient (RCR) | payer MEDICARE, SELFPAY ==
[2024-09-14] MEDS: Normal Saline Flush 10 ML SYR IVP (13:13)
[2024-09-19] MEDS: Normal Saline Flush 10 ML SYR IVP ×2 (12:04→12:39)
[2024-09-19] MEDS: Water,Injection,Sterile 10 ML VIAL (12:04)
[2024-09-19] MEDS: Alteplase 2 MG VIAL IJ (12:06)
== END 2024-10-08 23:59 | disposition home or self-care (01) ==
LOC: INF 02:36
PROVIDERS: PCP Nurse Practitioner Family; Visit Provider Internal Medicine Medical Oncology
DX: Z45.2 Encounter for adjustment and management of vascular access device (principal); C34.11 Malignant neoplasm of upper lobe, right bronchus or lung
CPT/HCPCS: 96523; J2997

== ENCOUNTER 2024-10-13 02:14 | Outpatient (CLI) | payer MEDICARE, SELFPAY ==
--- NOTE | 2024-10-13 11:56 | DI.MAMMO_ITS ---
Exam(s) MAMMO SCREENING EXAM: MAMMO SCREENING CLINICAL HISTORY: Screening, Z12.31 TECHNIQUE: Mammograms were interpreted according to the usual protocol including computer analysis w [employer] CAD system, tomosynthesis and C-view imaging. COMPARISON: 2016 through 2022 FINDINGS: The breasts are composed of mainly fatty density , Breast Density category A. No suspicious masses or suspicious microcalcifications are seen. No skin thickening or abnormal axillary lymph nodes are seen. There has been no significant change from prior exams. IMPRESSION: BI-RADS Category 1, Negative mammogram Yearly screening mammography is recommended. Breast Density - Category A, fatty density. A negative radiographic report should not delay biopsy if a dominant or clinically suspicious mass is present. Up to ten percent of cancers are not identified on mammography. A negative report may reinforce clinical impression. Adenosis and dense breasts may obscure an underlying neoplasm. False positive reports average 6 to 10%. Patient will receive a letter notifying them of these results.
== END 2024-10-13 02:34 ==
LOC: DI 02:14
PROVIDERS: PCP Nurse Practitioner Family; Visit Provider Family Medicine
DX: Z12.31 Encounter for screening mammogram for malignant neoplasm of breast (principal); R92.313 Mammographic fatty tissue density, bilateral breasts
CPT/HCPCS: 77063; 77067

== ENCOUNTER 2024-10-13 02:14 | Outpatient (CLI) | payer MEDICARE, SELFPAY ==
--- NOTE | 2024-10-13 | DI.CT_ITS ---
Exam(s) CT CHEST W EXAM: CT CHEST W CLINICAL HISTORY: NSCLC, C34.11, s/p chemoRT, h/o pneumonitis s/p 2-3 doses of immunotherapy TECHNIQUE: Imaging Protocol: Axial computed tomography images with coronal and sagittal reformatted images were created and reviewed. Computer aided detection (CAD) was utilized. CONTRAST MATERIAL: Intravenous: Omnipaque 350 Contrast volume:70 ml. COMPARISON: CT CT CHEST W from 07/13/2024 FINDINGS: Pulmonary parenchyma: Stable appearance areas of infiltration right upper lobe and perihilar region. Stable 8 millimeter nodule posterior left lower lobe. Underlying emphysematous changes. Stable right- sided volume loss. Tracheobronchial tree: No bronchiectasis or mucous plugging. Mediastinum and Kassie: No dominant adenopathy or fluid collection. Pleura: No effusion. No pneumothorax. Heart: The heart is not dilated. No coronary artery calcifications are seen. Aorta: Thoracic aorta non-dilated. Mild atherosclerotic changes. Pulmonary arteries: No gross evidence of emboli. Upper abdomen: No acute findings. Stable liver cyst. Bones: Degenerative changes in the spine. Soft tissues: Port over left upper chest. IMPRESSION: Stable appearance right upper lobe and perihilar mass/infiltrate. Stable left lower lobe nodule. RADIATION DOSE DELIVERED: 167.48mGy.cm Total DLP DATA REPOSITORY: All CT scans at this facility are submitted to the National Radiology Data Registry (NRDR) Dose Index Registry (DIR) with the [employer] (ACR). RADIATION OPTIMIZATION: All CT scans at this facility use at least one of these dose optimization te chniques: automated exposure control; mA and/or kV adjustment per patient size (includes targeted exa ms where dose is matched to clinical indication); or iterative reconstruction.
[2024-10-13] MEDS: Normal Saline - Diluent 50 ML VIAL IJ (13:20)
[2024-10-13] MEDS: Omnipaque 350 MG/ML 100 ML BTL IJ (13:28)
== END 2024-10-13 02:34 ==
PROVIDERS: PCP Family Medicine; Visit Provider Nurse Practitioner Family
DX: C34.11 Malignant neoplasm of upper lobe, right bronchus or lung (principal)
CPT/HCPCS: 71260; J3490

== ENCOUNTER 2024-10-13 02:47 | Outpatient (RCR) | payer MEDICARE, SELFPAY ==
[2024-10-13] MEDS: Normal Saline Flush 10 ML SYR IVP (12:16)
[2024-10-13 12:30] LABS: Abs Immature Grans 0.02 10^3/uL (0.0-0.06); Absolute Basophil Count 0.04 10^3/uL (0.0-0.2); Absolute Eosinophil Count 0.09 10^3/uL (0.0-0.7); Absolute Lymphocyte Count 1.35 10^3/uL (1.2-3.4); Absolute Monocyte Count 0.63 10^3/uL (0.1-0.8); Absolute Neutrophil Count 4.89 10^3/uL (1.2-6.7); Basophils % 0.6 %; Eosinophils % 1.3 %; HGB 14.6 g/dL (11.2-15.7); Immature Grans % 0.3 %; Lymphocytes % 19.2 %; MCH 29.8 pg (27.0-33.0); MCHC 33.2 % (32.0-36.0); MCV 90 fL (80-95); MPV 9.6 fL (8.0-11.0); Neutrophils % 69.6 %; Platelet Count 215 10^3/uL (130-400); RDW 14.6 % (11.7-14.6); WBC 7.02 10^3/uL (4.4-10.8)
[2024-10-13 13:06] LABS: ALT 19 U/L (14-59); AST 16 U/L (15-37); Albumin 3.6 g/dL (3.4-5.0); Alkaline Phosphatase 117 U/L (46-116); Anion Gap 11.5 mmol/L (3-11); BUN 25 mg/dL (7-18); Bilirubin, Total 0.37 mg/dL (0.2-1.0); CO2 22.5 mmol/L (21.0-32.0); CREATININE 1.1 mg/dL (0.55-1.02); Calcium 9.4 mg/dL (8.5-10.1); Chloride 107 mmol/L (98-107); Estimated GFR 53.06 (mL/min/1.73m2); FREE T4 0.91 ng/dL (0.76-1.46); Glucose 101 mg/dL (74-106); Magnesium 1.9 mg/dL (1.8-2.4); Potassium 4.2 mmol/L (3.5-5.1); Sodium 141 mmol/L (136-145); TSH 2.54 uIU/mL (0.36-3.74); Total Protein 7.5 g/dL (6.4-8.2)
== END 2024-11-08 23:59 | disposition home or self-care (01) ==
LOC: INF 02:47
PROVIDERS: PCP Nurse Practitioner Family; Visit Provider Internal Medicine Medical Oncology
DX: C34.11 Malignant neoplasm of upper lobe, right bronchus or lung (principal); Z79.899 Other long term (current) drug therapy; Z45.2 Encounter for adjustment and management of vascular access device
CPT/HCPCS: 36591; 80053; 83735; 84439; 84443; 85025

== ENCOUNTER 2024-11-17 04:08 | Outpatient (RCR) | payer MEDICARE, SELFPAY ==
[2024-11-17] MEDS: Normal Saline Flush 10 ML SYR IVP (10:59)
== END 2024-12-09 23:59 | disposition home or self-care (01) ==
LOC: INF 04:08
PROVIDERS: PCP Family Medicine; Visit Provider Internal Medicine Medical Oncology
DX: Z45.2 Encounter for adjustment and management of vascular access device (principal)
CPT/HCPCS: 96523

== ENCOUNTER 2024-12-15 01:42 | Outpatient (RCR) | payer MEDICARE, SELFPAY ==
[2024-12-15] MEDS: Normal Saline Flush 10 ML SYR IVP (10:18)
== END 2025-01-06 23:59 | disposition home or self-care (01) ==
LOC: INF 01:42
PROVIDERS: PCP Family Medicine; Visit Provider Internal Medicine Medical Oncology
DX: Z45.2 Encounter for adjustment and management of vascular access device (principal)
CPT/HCPCS: 96523

== ENCOUNTER 2025-01-12 02:34 | Outpatient (RCR) | payer MEDICARE, SELFPAY ==
[2025-01-12] MEDS: Normal Saline Flush 10 ML SYR IVP (11:09)
== END 2025-02-06 23:59 | disposition home or self-care (01) ==
LOC: INF 02:34
PROVIDERS: PCP Family Medicine; Visit Provider Internal Medicine Medical Oncology
DX: Z45.2 Encounter for adjustment and management of vascular access device (principal)
CPT/HCPCS: 96523

== ENCOUNTER 2025-02-07 01:19 | Outpatient (CLI) | payer MEDICARE, SELFPAY ==
[2025-02-07] MEDS: Normal Saline - Diluent 50 ML VIAL IJ (10:34)
[2025-02-07] MEDS: Omnipaque 350 MG/ML 100 ML BTL 70 ML IJ (10:34)
--- NOTE | 2025-02-07 10:50 | DI.CT_ITS ---
Exam(s) CT CHEST W EXAM: CT CHEST W CLINICAL HISTORY: LOCALIZED NSCLC, S/P TREATMENT TECHNIQUE: Imaging Protocol: Axial computed tomography images with coronal and sagittal reformatted images were created and reviewed. Computer aided detection (CAD) was utilized. CONTRAST MATERIAL: Intravenous: Omnipaque 350Contrast volume:70 mL. COMPARISON: CT CT CHEST W from 10/13/2024 FINDINGS: Tracheobronchial tree: Stable opacity in the right upper lobe and right perihilar region with associa odilia bronchiectatic changes. Pulmonary parenchyma: Stable nonspecific interstitial peripheral infiltrates are seen. No new focal infiltrates are seen. Stable pulmonary nodules are seen including the 8 mm nodule in the left lower lobe. No new pulmonary nodules are present. Mediastinum and Kassie: No dominant adenopathy or fluid collection. The esophagus is unremarkable. Thyroid gland: Unremarkable. Pleura: No effusion or pneumothorax. Heart: The heart is not dilated. Mild three-vessel coronary artery calcification is present. No lanie cardial effusion. Aorta: Thoracic aorta non-dilated. Atherosclerotic calcification is present. There is no evidence of dissection. Pulmonary arteries: No pulmonary emboli are identified. Upper abdomen: There is a simple hepatic cyst. There is fatty infiltration of the pancreas. Lymph nodes: Within normal limits. Bones: Within normal limits for the patient's age. Tubes, Catheters, and Lines: There is a left-sided port in place. Soft tissues: Unremarkable. IMPRESSION: 1. Stable appearance of the chest since 10/13/2024. 2. No acute pulmonary process. RADIATION DOSE DELIVERED: 202.74mGy.cm Total DLP DATA REPOSITORY: All CT scans at this facility are submitted to the National Radiology Data Registry (NRDR) Dose Index Registry (DIR) with the [employer] (ACR). RADIATION OPTIMIZATION: All CT scans at this facility use at least one of these dose optimization te chniques: automated exposure control; mA and/or kV adjustment per patient size (includes targeted exa ms where dose is matched to clinical indication); or iterative reconstruction.
== END 2025-02-07 01:39 ==
LOC: DI 01:20
PROVIDERS: PCP Family Medicine; Visit Provider Internal Medicine Medical Oncology
DX: C34.11 Malignant neoplasm of upper lobe, right bronchus or lung (principal)
CPT/HCPCS: 71260; J3490

== ENCOUNTER 2025-02-07 01:38 | Outpatient (RCR) | payer MEDICARE, SELFPAY ==
[2025-02-07] MEDS: Normal Saline Flush 10 ML SYR IVP (09:42)
[2025-02-07 09:56] LABS: Abs Immature Grans 0.02 10^3/uL (0.0-0.06); Absolute Basophil Count 0.07 10^3/uL (0.0-0.2); Absolute Eosinophil Count 0.11 10^3/uL (0.0-0.7); Absolute Lymphocyte Count 1.06 10^3/uL (1.2-3.4); Absolute Monocyte Count 0.55 10^3/uL (0.1-0.8); Basophils % 1.1 %; Eosinophils % 1.7 %; HCT 44.7 % (36.0-46.0); HGB 14.9 g/dL (11.2-15.7); Immature Grans % 0.3 %; Lymphocytes % 16.8 %; MCH 30.2 pg (27.0-33.0); MCHC 33.3 % (32.0-36.0); MCV 91 fL (80-95); MPV 9.2 fL (8.0-11.0); Monocytes % 8.7 %; Neutrophils % 71.4 %; Platelet Count 185 10^3/uL (130-400); RBC 4.94 10^6/uL (3.93-5.22); RDW 13.8 % (11.7-14.6); RDW-SD 45.4 fL; WBC 6.31 10^3/uL (4.4-10.8)
[2025-02-07 10:31] LABS: ALT 27 U/L (14-59); AST 16 U/L (15-37); Albumin 3.4 g/dL (3.4-5.0); Alkaline Phosphatase 121 U/L (46-116); Anion Gap 12.8 mmol/L (3-11); BUN 24 mg/dL (7-18); Bilirubin, Total 0.5 mg/dL (0.2-1.0); CO2 25.2 mmol/L (21.0-32.0); CREATININE 1.1 mg/dL (0.55-1.02); Calcium 9.5 mg/dL (8.5-10.1); Chloride 106 mmol/L (98-107); Estimated GFR 53.06 (mL/min/1.73m2); FREE T4 0.96 ng/dL (0.76-1.46); Glucose 101 mg/dL (74-106); Magnesium 1.9 mg/dL (1.8-2.4); Potassium 4.2 mmol/L (3.5-5.1); Sodium 144 mmol/L (136-145); TSH 2.19 uIU/mL (0.36-3.74); Total Protein 7.2 g/dL (6.4-8.2)
== END 2025-03-08 23:59 | disposition home or self-care (01) ==
LOC: INF 01:38
PROVIDERS: Nurse Practitioner Family; PCP Family Medicine; Visit Provider Internal Medicine Medical Oncology
DX: C34.11 Malignant neoplasm of upper lobe, right bronchus or lung (principal); Z79.899 Other long term (current) drug therapy
CPT/HCPCS: 36591; 80053; 83735; 84439; 84443; 85025

== ENCOUNTER → 2025-04-27 09:48 | Outpatient (BNVA) | payer MEDICARE, SELFPAY | PROVIDERS: PCP Family Medicine; Referring Provider Family Medicine; Visit Provider Physical Therapy Assistant | DX: Z12.11 Encounter for screening for malignant neoplasm of colon (principal); Z86.0101 Personal history of adenomatous and serrated colon polyps; Z86.0109 Personal history of other colon polyps; Z80.0 Family history of malignant neoplasm of digestive organs | CPT/HCPCS: S0285 ==

== ENCOUNTER 2025-05-08 11:16 | Day surgery (SDC) | payer MEDICARE, SELFPAY ==
--- NOTE | 2025-05-07 12:01 | W.PM.DSUDISC ---
Date of service: 05/08/25 Discharge Plan Disposition Patient Disposition: Home Condition: Good Discharge Details Reason For Visit: screening colonocsopy Attending Provider: Jah Estrada Primary Care Provider: Deepika Grewal V Home Meds and New Rx's Prescriptions: Continued metoprolol tartrate 50 mg tablet 25 mg PO HS losartan 50 mg tablet 100 mg PO QHS cholecalciferol (vitamin D3) 75 mcg (3,000 unit) tablet 150 mcg PO DAILY calcium carbonate [Calcium 600] 600 mg calcium (1,500 mg) tablet 600 mg PO DAILY aspirin [Aspir-81] 81 MG tablet,delayed release (DR/EC) 81 mg PO QAM simvastatin 40 MG tablet 40 mg PO HS omeprazole 20 MG capsule,delayed release(DR/EC) 20 mg PO QPM montelukast 10 MG tablet 10 mg PO HS fluticasone propion-salmeterol [Advair Diskus] 1 PUFF blister with device 1 ea Inhalation QAM albuterol sulfate [Proventil HFA] 1 PUFF HFA aerosol inhaler 2 puff Inhalation DIRECTED multivitamin 1 EACH capsule 1 ea PO QAM fluticasone propionate 16 GM spray,suspension 2 spry NS QAM diphenhydramine HCl [Benadryl] 25 MG capsule 25 mg PO PRN PRN Discontinued bisacodyl [Dulcolax (bisacodyl)] 5 mg tablet,delayed release (DR/EC) 5 mg PO ONCE Qty: 4 0RF Rx Instructions: Take per colonoscopy instructions provided by ordering providers office polyethylene glycol 3350 17 gram/dose powder 17 g PO ONCE Qty: 238 0RF Rx Instructions: Take per colonoscopy instructions provided by ordering providers office Discharge Instructions Instructions: Colon polyps, Diverticulosis Additional Instructions: Carmela, it was very nice seeing you today, and I hope you are comfortable through the procedure and that you make a quick recovery. Again, please except my sincerest apologies for taking so long to get through the procedures today. Your procedure went very smoothly, however. I found only 3 polyps, and all of these were quite small today. I removed these without any issues. Incidentally, you do have some diverticulosis as well. Hopefully, these never bother you. I will attach some basic information about colon and rectal polyps, as well as diverticulosis here. As you you probably recall from your previous procedures, your polyps will be sent off to the pathologist for them to review. Once I know the nature of these, which usually takes a week or 2, my office will be in touch with recommendations for future colonoscopies. If you need anything, or have any questions, please do not hesitate to ask at any time. 1. If tolerated, consume a soft, low fiber diet for 1-2 days. 2[address] Do not drive, drink alcohol, operate machinery, make critical decisions, or do activities that require coordination or balance for 24 hours. 3. Because air was put into your colon during the procedure, expelling air from your rectum (passing gas or farting) is normal. 4. You may not have a bowel movement for 1-3 days because of the colonoscopy prep. This is normal. 5. Go directly to the emergency room if you notice any of the following: Develop chills (warm to touch), or if you have a thermometer and your temperature is above 101 Difficulty breathing or difficultly swallowing Persistent vomiting Severe abdominal pain, other than gas cramps Severe chest pain Black, tarry stools Any bleeding ? exceeding one tablespoon 6. Call your physician if the site where your intravenous was started becomes red, swollen, painful, and warm to touch. 7. Your physician has reviewed your pre-procedure medications. Please continue to take those medications as previously ordered. You will be given specific information/education regarding any changes to your medications before leaving. Stand Alone Forms: Anesthesia Discharge Inst.Karrie (DSU) Activity:: Activity as Tolerated Diet:: As Tolerated Discharge Orders Discharge Orders: Discharge Order (Routine); Ordered 05/07/25 Ordered By: Jah Estrada DS: Diagnosis Discharge Diagnosis (1) Screening for colon cancer: Status: Acute Asessment and Plan: Follow-up on polypectomy results
--- NOTE | 2025-05-07 12:02 | COLE_ITS ---
Date of service: 05/08/25 Time of Service: 15:34 Colonoscopy Report Date of procedure: 05/08/25 Pre-op diagnosis general: screening colonoscopy Post-op diagnosis procedure note: other (Colon polyps, diverticulosis) Procedure: colonoscopy with polypectomy Surgeon: Jah Estrada Anesthesia Type: General:No Airway Estimated blood loss (mL): 5 Pathology: other (0.25 cm flat polyps from the cecum, 110 cm, 65 cm) Complications: None Disposition: same day Indications: Carmela is a 75 year old woman who needs a screening colonoscopy Prep: Miralax/Dulcolax Procedure Start Time: 14:37 Procedure End Time: 15:58 Retraction Time: 15 Findings: Diverticulosis, 0.25 cm cecal polyp, 0.25 cm flat polyp at 110 cm, 0.25 cm flat polyp at 65 cm Procedure Description: After the induction of anesthesia, and with the patient in left lateral decubitus position, I began by performing an external anorectal exam.? Perineum and skin were normal, as was the anal verge.? There was no evidence of external hemorrhoids.? Next, I performed a digital rectal exam.? I did not appreciate any abnormal findings.? Next, I advanced a colonoscope into the rectal vault.? I performed retroflexion.? This appeared normal.? Using irrigation, I then advanced the colonoscope beyond the rectal folds and into the sigmoid colon before advancing towards the cecum.? Within the main portion of the cecum was a 0.25 cm flat polyp. This was removed with cold forceps without any difficulty. There was minimal bleeding.? The scope was noted to be in the cecum by identification of the ileocecal valve and appendiceal orifice.? I then began withdrawing the colonoscope using repeated irrigation as necessary for full evaluation of the colonic mucosa. Around 110 cm from the anal verge was another 0.25 cm flat polyp. This was also removed in entirety with cold forceps. There was minimal bleeding from this site. Another 0.25 cm flat polyp was found at 65 cm from the anal verge. This was also removed with cold forceps similar to the first 2. ?Once the scope was withdrawn to the level of the rectum, great care was taken to examine portions of the rectal folds.? Finally, the scope was withdrawn and the patient was brought to the same-day surgery recovery unit as the anesthetic wore off. ?The findings and instructions were shared with the patient prior to discharge. [place] Bowel Prep [place] Bowel Prep Right Colon: 3 Left Colon: 2 Transverse Colon: 3 Total Score: 8
[2025-05-08 11:59] VITALS: BP 167/84; PULSE 94; RESP 16; TEMP 35.8; O2SAT 18
[2025-05-08] MEDS: Lactated Ringers 1,000 ML 80 ML IV (12:31)
--- NOTE | 2025-05-08 14:09 | W.ANESPRE ---
General Info Date of Service Date Performed: 05/08/25 Height: 5 ft 3 in Weight: 92.7 kg Body Mass Index (BMI): 36.1 Surgical Procedure: Operation Date: 05/08/25 13:05 Proposed Procedure Side Surgeon yousif Estrada MD Meds Allergies and Home Medications Allergies Allergy/AdvReac Type Severity Reaction Status Date / Time clarithromycin (From Biaxin) Allergy Intermediate Skin Rash Unverified 05/08/25 11:53 mushroom Allergy Intermediate Itching Unverified 05/08/25 11:53 adhesive AdvReac Intermediate blisters Verified 05/08/25 11:53 Sulfa (Sulfonamide AdvReac Intermediate Agitation Unverified 05/08/25 11:53 Antibiotics) atorvastatin calcium (From AdvReac Mild Myalgias Unverified 05/08/25 11:53 Lipitor) Home Medication ?Medication ?Instructions ?Recorded albuterol sulfate 90 mcg/actuation 2 puff inhalation DIRECTED 03/28/13 aerosol inhaler (Proventil HFA) aspirin 81 mg tablet,delayed 81 mg PO QAM 03/28/13 release (Aspir-) fluticasone 100 mcg-salmeterol 50 1 ea inhalation QAM 03/28/13 mcg/dose blistr powdr for inhalation (Advair Diskus) fluticasone propionate 50 2 spry NS QAM 03/28/13 mcg/actuation nasal spray,suspension montelukast 10 mg tablet 10 mg PO HS 03/28/13 multivitamin 1 ea PO QAM 03/28/13 omeprazole 20 mg capsule,delayed 20 mg PO QPM 03/28/13 release simvastatin 40 mg tablet 40 mg PO HS 03/28/13 diphenhydramine HCl 25 mg capsule 25 mg PO PRN PRN 11/09/13 (Benadryl) calcium carbonate (Calcium 600) 600 mg PO DAILY 08/29/20 cholecalciferol (vitamin D3) 75 150 mcg PO DAILY 08/29/20 mcg (3,000 unit) tablet losartan 50 mg tablet 100 mg PO QHS 08/29/20 metoprolol tartrate 50 mg tablet 25 mg PO HS 08/29/20 Current Visit Medications: Current Medications Generic Name Dose Route Start Last Admin Trade Name Freq PRN Reason Stop Dose Admin Ringer's Solution 1,000 mls @ 80 mls/hr 05/08/25 06:00 05/08/25 12:31 IV 05/08/25 23:59 80 mls/hr INFUSION ANDREA Administration IV Miscellaneous Supplies 1 each 05/08/25 06:00 Iv Access IV 05/08/25 23:59 DIRECTED ANDREA Ondansetron HCl 4 mg 05/07/25 12:03 Ondansetron 4 Mg/2 Ml Vial IVP 06/06/25 12:02 Q4H PRN PRN Nausea / Vomiting Sodium Chloride 0 ml 05/08/25 06:00 Normal Saline Flush 10 Ml Syr IV 05/08/25 23:59 PRN PRN Sodium Chloride 0 ml 05/08/25 06:00 Normal Saline 10 Ml Vial IJ 05/08/25 23:59 DIRECTED PRN Sterile Water 0 ml 05/08/25 06:00 Water,Injection,Sterile 10 Ml Vial IJ 05/08/25 23:59 DIRECTED PRN PFSH Active Problems Active Problems: Problem Status Onset Code Primary malignant neoplasm of bronchus Acute C34.90 Tubular adenoma of colon Acute D12.6 Tubulovillous adenoma of colon Acute D12.6 Screening for colon cancer Acute Z12.11 Medical History Medical History Papule Paresthesia Pruritus History of tobacco use Family history of ischemic heart disease Obesity Diverticulitis Adenomatous colon polyp Chronic cough Pre-diabetes Family history of colon cancer in mother Hyperplastic colon polyp (~2012) Tubular adenoma Asthma Gastroesophageal reflux disease Chronic obstructive lung disease Hyperlipidemia Morbid obesity Essential hypertension Surgical History Surgical History Tonsillectomy and adenoidectomy Colonoscopy - MAC (~02/2022) Tobacco Smoking/Tobacco Use Status: Former Tobacco Use Alcohol Alcohol Intake: current Alcohol intake frequency: holidays/special occasions only Substance Use Substance use: Never Substance use type: does not use Vital Signs and Lab Results Vital Signs Most Recent Vital Signs in EMR: Most Recent Vital Signs Temp Pulse Resp BP Pulse Ox 35.8 C L 94 H 16 167/84 H 18 L 05/08/25 11:59 05/08/25 11:59 05/08/25 11:59 05/08/25 11:59 05/08/25 11:59 Anesthesia Assessment and Plan Anesthesia History Personal History: No History of Anesthesia Complications Family History: No Family History of Anesthesia Complications Exercise Tolerance Exercise Tolerance: Metabolic Equivalents<4 Pertinent Negatives Pertinent Negatives: No Symptoms of GERD (RX treatment) Cardiac & Pulmonary Exam Cardiac Exam: Normal S1/S2 Heart Sounds Pulmonary Exam: Clear Bilateral Breath Sounds Cardiac and Pulmonary Comment:: lung CA. No supplemental oxygen. Implantable Cardiac Device Does patient have a Pacemaker or an ICD?: No Airway Exam Known Difficult Airway: No Mallampati Class: 3 Mouth Opening: Normal (> 3cm) Thyromental Distance: Greater than 3 cm Neck Range of Motion: Full ROM Neck Circumference: Normal Teeth Condition: Removable Dentures/Plates Upper and Removable Dentures/Plates Lower ASA Classification ASA Score: ASA 3 Emergency Case?: No NPO Status NPO Status: NPO Clears >2 hours, Solids >8 hours Anesthesia Plan Resuscitation Status: Full Code Anesthesia Technique: General Anesthesia Airway Planned: Natural Airway Monitors Used: Standard Monitors
[2025-05-08 14:10] VITALS: BMI 36.1
--- NOTE | 2025-05-08 14:45 | BOWEL_PTH ---
PATIENT: Carmela Dunn LOC: [facility] U#:[id number] AGE/SX: 75/F ROOM: RE05/08/[address]: Jah Estrada MD : [id number] BED: DIS: 05/08/2025 SPEC #: [id number] RECD: 05/08/25 18:03 STATUS: LESLY REQ #: [id number] CHAITANYA: 05/08/25 14:[address]: Jah Estrada DEPT: Surgical Specimen RECD BY: Andra Sanderson ENTERED: 05/08/25 18:03 SP TYPE: Bowel OTHR DR: Deepika Grewal V Tissues: 1 - BIOPSY BOWEL 2 - BIOPSY BOWEL 3 - BIOPSY BOWEL Procedures: GROSS AND MICRO LEVEL 4 Comments: [id number]
[2025-05-08 15:07] VITALS: BP 105/62; PULSE 84; RESP 20; TEMP 36.3; O2SAT 94
--- NOTE | 2025-05-08 15:11 | W.ANESPOSTOP ---
Postoperative Evaluation Date, Time and Location Date Performed: 05/08/25 Time Performed: 15:11 Patient Location: Day Surgery Unit Vital Signs Most Recent Imported Vital Signs: Most Recent Vital Signs Temp Pulse Resp BP Pulse Ox 35.8 C L 94 H 16 167/84 H 18 L 05/08/25 11:59 05/08/25 11:59 05/08/25 11:59 05/08/25 11:59 05/08/25 11:59 Pain Score Most Recent Pain Score: Most Recent Pain Score Pain Level 0 05/08/25 11:59 Assessment Mental Status: Awake (Alert & Oriented to Patient Baseline) Airway and Respiratory Function: Patent airway with normal (patient baseline) respiratory exam Cardiovascular Function: Hemodynamically Stable Hydration Status: Adequately Hydrated Nausea & Vomiting: No Nausea or Vomiting Pain: Pt. Denies Any Pain Peripheral Nerve Block: Patient did not receive a nerve block
[2025-05-08 15:33] VITALS: BP 123/67; PULSE 89; RESP 18; TEMP 36.1; O2SAT 95
== END 2025-05-08 16:03 | disposition home or self-care (01) ==
LOC: SUR 11:16
PROVIDERS: PCP Family Medicine; Visit Provider Surgery
PROC: 0DJD8ZZ Inspection of Lower Intestinal Tract, Via Natural or Artificial Opening Endoscopic (ICD-10-PCS; CPT 45378; principal; 2025-05-08 13:00)
DX: Z12.11 Encounter for screening for malignant neoplasm of colon (principal); K57.30 Diverticulosis of large intestine without perforation or abscess without bleeding; D12.3 Benign neoplasm of transverse colon
CPT/HCPCS: 45380; 88305; J2704

== ENCOUNTER 2025-06-13 02:37 | Outpatient (CLI) | payer MEDICARE, SELFPAY ==
[2025-06-13 12:33] LABS: Abs Immature Grans 0.02 10^3/uL (0.0-0.06); HCT 42.6 % (36.0-46.0); HGB 14.2 g/dL (11.2-15.7); Immature Grans % 0.3 %; MCH 29.6 pg (27.0-33.0); MCHC 33.3 % (32.0-36.0); MCV 89 fL (80-95); MPV 9.7 fL (8.0-11.0); Platelet Count 199 10^3/uL (130-400); RBC 4.79 10^6/uL (3.93-5.22); RDW 13.6 % (11.7-14.6); RDW-SD 44.7 fL; WBC 6.71 10^3/uL (4.4-10.8)
[2025-06-13 12:56] LABS: ALT 29 U/L (14-59); AST 17 U/L (15-37); Albumin 3.4 g/dL (3.4-5.0); Alkaline Phosphatase 107 U/L (46-116); Anion Gap 9.8 mmol/L (3-11); BUN 21 mg/dL (7-18); Bilirubin, Total 0.4 mg/dL (0.2-1.0); CO2 23.2 mmol/L (21.0-32.0); Calcium 9.1 mg/dL (8.5-10.1); Chloride 106 mmol/L (98-107); Estimated GFR 59.12 (mL/min/1.73m2); Glucose 123 mg/dL (74-106); Potassium 3.9 mmol/L (3.5-5.1); Sodium 139 mmol/L (136-145); Total Protein 7.1 g/dL (6.4-8.2)
[2025-06-13] MEDS: Omnipaque 350 MG/ML 100 ML BTL 70 ML IJ (13:40)
--- NOTE | 2025-06-13 13:45 | DI.CT_ITS ---
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 Computer aided detection (CAD) was utilized. CONTRAST MATERIAL: Intravenous: Omnipaque 350Contrast volume:70 mL. COMPARISON: CT CT CHEST W from 02/07/2025 FINDINGS: Tracheobronchial tree: Patent where visualized. Pulmonary parenchyma: The opacity in the right upper lobe and right hilum is unchanged compared to the prior examination. The associated bronchiectasis in the right upper lobe is also again noted. Emphysematous changes are present in the lungs. There is a stable 8 mm nodule in the left lower lobe. No new nodules or infiltrates are present. Mediastinum and Kassie: No dominant adenopathy or fluid collection. The esophagus is unremarkable. There is a small hiatal hernia. Thyroid gland: Unremarkable. Pleura: No effusion or pneumothorax. Heart: The heart is not dilated. Mild coronary artery calcification is present. No pericardial effusion. Aorta: Thoracic aorta non-dilated. There is no evidence of dissection. Atherosclerotic calcification is present. Pulmonary arteries: No pulmonary emboli are identified. Upper abdomen: There is a stable hepatic cyst. Lymph nodes: Within normal limits. Bones: Within normal limits for the patient's age. Soft tissues: Unremarkable. IMPRESSION: Stable appearance of the chest since 02/07/2025. RADIATION DOSE DELIVERED: 183.79mGy.cm Total DLP DATA REPOSITORY: All CT scans at this facility are submitted to the National Radiology Data Registry (NRDR) Dose Index Registry (DIR) with the [employer] ([employer]). RADIATION OPTIMIZATION: All CT scans at this facility use at least one of these dose optimization techniques: automated exposure control; mA and/or kV adjustment per patient size (includes targeted exams where dose is matched to clinical indication); or iterative reconstruction.
[2025-06-13] MEDS: Normal Saline - Diluent 50 ML VIAL IJ (13:48)
== END 2025-06-13 02:57 ==
LOC: DI 02:37
PROVIDERS: PCP Family Medicine; Visit Provider Internal Medicine Medical Oncology
DX: C34.11 Malignant neoplasm of upper lobe, right bronchus or lung (principal)
CPT/HCPCS: 80053; 71260; 85025; J3490